=== PATIENT | female | born 1950 | race Caucasian/White ===

== ENCOUNTER 2017-07-30 23:19 | Emergency (ER) | payer MEDICARE, OTHER, SELFPAY ==
[2017-07-30 23:38] VITALS: BP 173/88; PULSE 59; RESP 16; TEMP 36.6; O2SAT 96; BMI 34.9
--- NOTE | 2017-07-30 23:46 | ED.FEMALEGU ---
HPI - Female Genitourinary General Chief complaint: Urogenital-Female Stated complaint: bleeding, unsure if rectal or vaginal Time Seen by Provider: 07/30/17 23:23 Source: patient and RN notes reviewed Mode of arrival: ambulatory Limitations: no limitations History of Present Illness HPI Narrative: Patient is a 67-year-old female with history of rectocele presenting with home of vaginal bleeding. Over the past week or so she has had progressively worse lower abdominal pain. This morning it was quite intense. This evening she also had bright red blood when she urinated. She does not remember her last bowel movement but thinks it was a couple of days ago. She denies any stool in her vagina. No nausea vomiting or fevers. She was recently treated with on Cipro for a UTI 2 or 3 weeks ago. Patient thinks that she was switched to a different antibiotic but can't remember what the thinks that she just had another course of Cipro. Onset (ago): day(s) Relieving factors: none Related Data Home Medications Medication Instructions Recorded Confirmed ACETAMINOPHEN 650 mg PO Q6HP #0 09/28/11 07/31/17 Calcium Carbonate/Vitamin D 1 cap PO Q DAY #0 09/28/11 07/31/17 (#CALCIUM) VITAMIN B COMPLEX 1 cap PO QDAY #0 09/28/11 07/31/17 albuterol sulfate [Ventolin HFA] 2 puff INH PRN #0 09/28/11 07/31/17 ciclesonide [Alvesco] 80 mcg IH BID #0 09/28/11 07/31/17 potassium chloride [Klor-Con 8] 10 meq PO QDAY #0 09/28/11 07/31/17 Fish Oil 1,500 mg PO QDAY #0 10/14/15 07/31/17 cholecalciferol (vitamin D3) 2,000 iu PO QDAY #0 10/14/15 07/31/17 [Vitamin D3] metoprolol tartrate 25 mg PO BID #0 01/11/17 07/31/17 rosuvastatin 40 mg PO BEDTIME 07/31/17 07/31/17 Previous Rx's Medication Instructions Recorded [CMP ESTRIOL CREAM] 0.2 % VAGINAL SEE INSTRUCTIONS #30 07/04/17 gm nitrofurantoin monohyd/m-cryst 1 cap PO Q12H 7 Days #14 cap 07/31/17 [Macrobid] Allergies Allergy/AdvReac Type Severity Reaction Status Date / Time celecoxib [CELECOXIB] Allergy Mild HIVES Verified 07/30/17 23:42 ciprofloxacin [From CIPRO] Allergy Mild causes c Verified 07/30/17 23:42 diff codeine [CODEINE] Allergy Mild HEART Verified 07/30/17 23:42 RACING cortisone [CORTISONE] Allergy Mild HIVES AND Verified 07/30/17 23:42 NAUSEA erythromycin base Allergy Mild FACE Verified 07/30/17 23:42 [ERYTHROMYCIN BASE] SWELLING latex [LATEX] Allergy Mild hives Verified 07/30/17 23:42 Penicillins [PENICILLINS] Allergy Mild THROAT Verified 07/30/17 23:42 SWELLING Sulfa (Sulfonamide Allergy Mild THROAT Verified 07/30/17 23:42 Antibiotics) SWELLING [SULFA (SULFONAMIDE ANTIBIOTICS)] scopolamine [SCOPOLAMINE] Allergy Unknown PT STATES Verified 07/30/17 23:42 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 ADHESIVE TAPES Allergy Unknown WELTS Uncoded 06/28/17 13:07 Review of Systems Review of Systems All systems reviewed & are unremarkable except as noted in HPI and below Constitutional Denies chills, Denies fever(s), Denies lethargy and Denies weakness Cardiovascular Denies chest pain, Denies irregular heart rhythm, Denies lightheadedness, Denies palpitations, Denies dyspnea, Denies dyspnea on exertion and Denies orthopnea Respiratory Denies cough, Denies dyspnea, Denies dyspnea on exertion and Denies wheezing Gastrointestinal Gastrointestinal: Reports as per HPI Genitourinary Reports as per HPI and Reports prolapse symptoms Musculoskeletal Denies back pain, Denies muscle weakness, Denies numbness and Denies tingling Integumentary/Breasts Denies pruritus, Denies erythema, Denies rash and Denies wounds Neurologic Denies numbness, Denies tingling and Denies weakness Endocrine Denies palpitations Allergic/Immunologic Denies wheezing PMFSH Past Medical History Source: nursing notes reviewed Medical history: Reports other (Rectocele) Surgical history: Reports appendectomy and hysterectomy Exam Const General: cooperative and well developed Nutritional Appearance: well nourished Orientation: alert, awake, oriented x3 and not confused Neck Neck: no meningeal signs Resp Effort & Inspection: normal respiratory effort, able to speak in complete sentences, no respiratory distress and no use of accessory muscles Auscultation: clear to auscultation bilaterally, no rales, no rhonchi and no wheezes Cardio Rate: regular rate Rhythm: regular rhythm Heart Sounds: no click, no gallops, no murmurs and no rubs Pulses: normal peripheral pulses GI Inspection: normal to inspection Palpation: soft and No guarding Rectal Exam: hemorrhoids External Female Exam: no external swelling, no lesions and other (Large external rectocele appears chronic will sign of bleeding no gross discharge, rectocele is soft nontender, mobile) Skin General: no rashes or lesions noted, No jaundice and No petechiae Neuro General: alert, oriented x3, gait normal and no focal motor deficits Cranial Nerves: CN's II-XI intact bilaterally Speech: speech normal Motor: strength 5/5 throughout Sensory Exam: no sensory deficits noted MDM - Female Genitourinary MDM Narrative Medical decision making narrative: Patient's blood work within normal limits. She does have leukocytes and blood in her urine. She is at risk for frequent UTIs with her rectocele. He is appears chronic. Will put her on Macrobid. says that she has tolerated that 1 before. She has multiple antibiotic allergies. She otherwise appears stable for the toxic. She is scheduled with Dr. Quiroz at [facility] for surgery Medical Records Attestation: I reviewed the patient's medical records. Lab Data Attestation: I reviewed the patient's lab results. Result diagrams: 07/30/17 23:55 07/30/17 23:55 Lab Results 07/30/17 07/30/17 07/30/17 Range/Units 23:35 23:55 23:55 WBC 7.6 (4.5-11.0) X10^3/uL RBC 5.03 (4.0-5.2) X10^6/uL Hgb 15.6 (12.0-16.0) g/dL Hct 45.6 (36-46) % MCV 90.7 (80-100) fL MCH 31.1 (26-34) PG MCHC 34.3 (30-36) % RDW 13.7 (11.6-14.8) % Plt Count 188 (150-400) X10^3/uL Neut % (Auto) 44.1 L (50-75) % Lymph % (Auto) 41.1 H (25-40) % Howard % (Auto) 10.8 (3-14) % Eos % (Auto) 3.4 (2-4) % Baso % (Auto) 0.6 (0-2) % Neut # (Auto) 3300 (4347-2818) /uL Sodium 142 (137-145) mmol/L Potassium 3.8 (3.4-5.1) mmol/L Chloride 104.0 (98-107) mmol/L Carbon Dioxide 26.0 (22-32) mmol/L BUN 14.0 (7-17) mg/dL Creatinine 0.70 (0.52-1.04) mg/dL Estimated GFR > 60.0 (>60) mL/min BUN/Creatinine Ratio 20.0 (6-22) Glucose 98 (80-110) mg/dL Calcium 10.5 H (8.4-10.2) mg/dL Total Bilirubin 0.6 (0.2-1.3) mg/dL AST 34 (14-36) IU/L ALT 36 (9-52) IU/L Alkaline Phosphatase 79 (38-126) U/L Total Protein 7.3 (6.3-8.2) g/dL Albumin 4.5 (3.5-5.0) g/dL Globulin 2.8 (1.7-4.1) g/dL Albumin/Globulin Ratio 1.6 (1.0-2.8) Lipase 114 (23-300) U/L Urine RBC 1-5/hpf (0-5/HPF) Urine WBC 1-5/hpf (0-5/HPF) Ur Squamous Epith Cells 1-5 /hpf Urine Bacteria Few (2-10) H (None) Ur Culture Indicated? Specimen cultured Micro UA Comment Not Reportable Imaging Data CT scan - abdomen: Radiologist's impression: bilingual student tutor report Diverticulosis. Small areas of fluid attenuation are noted near anterior abdominal wall periumbilical region possibly related to prior surgery. Findings consistent with prolapse of the uterus vagina and rectum. Small hiatal hernia. Course Orders Ordered: ED Orders 07/30/17 23:35 Urine Microscopic Stat 07/30/17 23:48 CT abdomen pelvis w con Stat 07/30/17 23:55 Complete Blood Count AUTO DIFF Stat Comprehensive Metabolic Panel Stat Lipase Stat Discontinued Medications Sodium Chloride (Normal Saline 0.9%) 1,000 mls @ 150 mls/hr IV CONT LUANA Last Infusion: 07/31/17 02:28 Dose: 150 mls/hr Admin: 07/31/17 00:00 Dose: 150 mls/hr Nitrofurantoin Macrocrystals (Macrobid 100 Mg Capsule) 100 mg PO NOW ONE Stop: 07/31/17 02:01 Last Admin: 07/31/17 02:10 Dose: 100 mg Ondansetron HCl (Zofran) 4 mg IV NOW ONE Stop: 07/30/17 23:47 Last Admin: 07/31/17 00:00 Dose: 4 mg Last Vital Signs Temp 97.7 F 07/31/17 02:16 Pulse 60 07/31/17 02:16 Resp 16 07/31/17 02:16 BP 150/62 H 07/31/17 02:16 Pulse Ox 98 07/31/17 02:16 Discharge Plan Departure Patient Disposition: Home, Self-Care Clinical Impression: Urinary tract infection Discharge Date/Time: 07/31/17 02:30 Interventions: ED Discharge Assessment Last Done: 07/31/17 02:27 Instructions: Cystocele/Rectocele, DI for Urinary Tract Infection (UTI) Activity Restrictions/Additional Instructions: *You have been diagnosed with bladder infection *What to do: CT scan does show pockets of fluid likely to be left over from his surgery and not acute infection, however may require is drainage for evaluation if you become more symptomatic *Take medications as directed *Follow up with your primary care provider in 2-3 days *Return to ER if you should have increasing pain, fever or any new, worsening or concerning symptoms Prescriptions: New nitrofurantoin monohyd/m-cryst [Macrobid] 100 mg capsule 1 cap PO Q12H 7 Days Qty: 14 RF: 0 No Action ciclesonide [Alvesco] 160 MCG/PUFF HFA aerosol inhaler 80 mcg IH BID Qty: 0 RF: 0 potassium chloride [Klor-Con 8] 8 MEQ tablet extended release 10 meq PO QDAY Qty: 0 RF: 0 VITAMIN B COMPLEX 1 cap PO QDAY Qty: 0 RF: 0 ACETAMINOPHEN 650 mg PO Q6HP Qty: 0 RF: 0 albuterol sulfate [Ventolin HFA] 90 MCG/PUFF HFA aerosol inhaler 2 puff INH PRN Qty: 0 RF: 0 Calcium Carbonate/Vitamin D (#CALCIUM) 1 cap PO Q DAY Qty: 0 RF: 0 cholecalciferol (vitamin D3) [Vitamin D3] 2,000 UNIT capsule 2,000 iu PO QDAY Qty: 0 RF: 0 Fish Oil 1,500 mg PO QDAY Qty: 0 RF: 0 metoprolol tartrate 25 MG tablet 25 mg PO BID Qty: 0 RF: 0 [CMP ESTRIOL CREAM] 0.2 % Vaginal SEE INSTRUCTIONS Qty: 30 RF: 3 rosuvastatin 40 mg tablet 40 mg PO BEDTIME RF: 0 Referrals: Shana Ramírez MD [Physician] - Schuyler Bello MD [Primary Care Provider] - Alisa Quiroz MD [Non-Staff] -
--- NOTE | 2017-07-30 23:48 | DI.CT.S_ITS ---
PROCEDURE: CT ABDOMEN PELVIS W CON INDICATIONS: vaginal bleeding with rectocele TECHNIQUE: After the administration of oral and intravenous contrast, 5 mm thick sections acquired from the diaphragms to the symphysis. 5 mm thick coronal and sagittal reformats were performed. For radiation dose reduction, the following was used: automated exposure control, adjustment of mA and/or kV according to patient size. COMPARISON: Pelvic ultrasound 02/11/2015; CT abdomen and pelvis 02/02/2015, 01/29/2015 FINDINGS: Preliminary report by shift lab technician radiology Image quality: Excellent. ABDOMEN: Lung bases: Lung bases show mild bibasilar atelectasis or scarring, right greater than left. Heart size is normal. Small hiatal hernia. Solid organs: Liver is normal in size and enhancement. Gallbladder appears clear. Biliary system is non-dilated. Pancreas enhances normally. Spleen is normal in size and enhancement. No adrenal nodules. Kidneys are normal in size and enhancement, without hydronephrosis. Peritoneum and bowel: Stomach, small bowel, and colon loops are normal in caliber and wall thickness. The appendix is nonvisualized. Mild colonic diverticulosis without diverticulitis. No free fluid or air. Nodes and vessels: No retroperitoneal or mesenteric adenopathy. Aorta and inferior vena cava are normal in caliber. Miscellaneous: Small fluid-filled periumbilical hernia. PELVIS: Genitourinary: Bladder wall thickness is normal. Rectal, uterine and vaginal prolapse is evident. Miscellaneous: No inguinal hernias or adenopathy. Bones: No suspicious bony lesions. Degenerative disc disease and grade 1 anterolisthesis L4-5 and L5-S1. Disc degeneration T10-11 also noted. No vertebral body compression fractures. IMPRESSION: 1. No acute findings. 2. Rectal, uterine and vaginal prolapse. 3. Periumbilical fluid-filled ventral hernia, possibly postsurgical. 4. Small hiatal hernia. 5. Diverticulosis without diverticulitis. Findings are concordant with the preliminary report. Dictated by: Lui Domingo M.D. on 07/31/2017 at 8:02 Approved by: Lui Domingo M.D. on 07/31/2017 at 8:11
[2017-07-31] MEDS: ONDANSETRON 4 MG/2 ML INJ IV
[2017-07-31] MEDS: SODIUM CHLORIDE 0.9% 1,000 ML 150 ML IV
[2017-07-31 00:04] LABS: Add Manual Diff / Slide Review NO; Basophils Percent Auto 0.6 % (0-2); Eosinophils Percent Auto 3.4 % (2-4); Hematocrit 45.6 % (36-46); Hemoglobin 15.6 g/dL (12.0-16.0); Lymphocytes Percent Auto 41.1 % (25-40); Mean Corpuscular HGB Conc 34.3 % (30-36); Mean Corpuscular Hemoglobin 31.1 PG (26-34); Mean Corpuscular Volume 90.7 fL (80-100); Monocytes Percent Auto 10.8 % (3-14); Neutrophils Absolute Auto 3300 /uL (3000-5900); Neutrophils Percent Auto 44.1 % (50-75); Platelet Count 188 X10^3/uL (150-400); Red Blood Cell Count 5.03 X10^6/uL (4.0-5.2); Red Cell Distribution Width 13.7 % (11.6-14.8); White Blood Cell Count 7.6 X10^3/uL (4.5-11.0)
[2017-07-31 00:12] LABS: RBC Urine 1-5/HPF (0-5/HPF); Squamous Epithelial Cell Urine 1-5 /HPF; WBC Urine 1-5/HPF (0-5/HPF)
[2017-07-31 00:13] LABS: Bacteria Urine Few (2-10); Culture Indicated Urine Specimen Cultured
[2017-07-31 00:13] LABS: Alanine Aminotransferase 36 IU/L (9-52); Albumin 4.5 g/dL (3.5-5.0); Albumin Globulin Ratio 1.6 (1.0-2.8); Alkaline Phosphatase 79 U/L (38-126); Aspartate Aminotransferase 34 IU/L (14-36); Bilirubin Total 0.6 mg/dL (0.2-1.3); Calcium 10.5 mg/dL (8.4-10.2); Estimated Glomerular Filt Rate > 60.0 mL/min (>60); Globulin 2.8 g/dL (1.7-4.1); Glucose 98 mg/dL (80-110); HEMOLYSIS < 15 (0-50); Lipase 114 U/L (23-300); Potassium 3.8 mmol/L (3.4-5.1); Sodium 142 mmol/L (137-145); Total Protein 7.3 g/dL (6.3-8.2)
[2017-07-31 00:15] VITALS: BP 138/76; PULSE 19; O2SAT 95
[2017-07-31 00:30] VITALS: BP 128/64; PULSE 60; O2SAT 96
[2017-07-31 01:29] VITALS: BP 169/87; PULSE 67; O2SAT 97
[2017-07-31 01:30] VITALS: BP 144/75; PULSE 64; O2SAT 98
[2017-07-31] MEDS: NITROFURANTOIN ER 100 MG CAPSULE PO (02:10)
[2017-07-31 02:16] VITALS: BP 150/62; PULSE 60; PULSE 66; RESP 16; TEMP 36.5; O2SAT 98; O2SAT 99
== END 2017-07-31 02:30 | disposition home or self-care (01) ==
PROVIDERS: Emergency Provider Emergency Medicine; Family Provider Family Medicine; PCP Family Medicine
DX: N39.0 Urinary tract infection, site not specified (principal)
CPT/HCPCS: 36591; 74177; 80053; 81003; 81015; 83690; 85025; 87086; 94760; 96361; 96374; 99284; J2405; Q9967

== ENCOUNTER 2017-10-11 18:47 | Emergency (ER) | payer MEDICARE, OTHER, SELFPAY ==
[2017-10-11 18:49] VITALS: BP 151/69; PULSE 67; RESP 20; TEMP 36.1; O2SAT 98; BMI 34.4
--- NOTE | 2017-10-11 21:53 | PC.NURSE ---
Pt reports she had surgery recently and had an IV placed in her L wrist. About 1.5 inches above insertion site at vein bifurcation pt reports feeling a ball under her skin which appears to look and feel like hematoma. Pt worried that its a blood clot. given warm compress for area. pt denies pain to site and L hand warm to touch with +CMS
--- NOTE | 2017-10-11 22:00 | ED.SKABFB ---
HPI - Skin/Abscess/Foreign Bdy <FREDERICK Menjivar - Last Filed: 10/11/17 22:14> General Chief complaint: Skin/Abscess/Foreign Body Stated complaint: LEFT WRIST VAIN FEELS ODD History of Present Illness HPI narrative: 67-year-old female here for complaint of having a small bump to her left distal forearm. She states she had a IV in that arm after she had surgery 9 days ago. She states that the filling along that area today when she felt a bump she denies any pain into the area. No erythema no swelling. She denies any other concerns or complaints. No shortness of breath. complaint: lesion Related Data Home Medications Medication Instructions Recorded Confirmed ACETAMINOPHEN 650 mg PO Q6HP #0 09/28/11 08/21/17 Calcium Carbonate/Vitamin D 1 cap PO Q DAY #0 09/28/11 08/21/17 (#CALCIUM) VITAMIN B COMPLEX 1 cap PO QDAY #0 09/28/11 08/21/17 albuterol sulfate [Ventolin HFA] 2 puff INH PRN #0 09/28/11 08/21/17 ciclesonide [Alvesco] 80 mcg IH BID #0 09/28/11 08/21/17 potassium chloride [Klor-Con 8] 10 meq PO QDAY #0 09/28/11 08/21/17 Fish Oil 1,500 mg PO QDAY #0 10/14/15 08/21/17 metoprolol tartrate 25 mg PO BID #0 01/11/17 08/21/17 rosuvastatin 40 mg PO BEDTIME 07/31/17 08/21/17 Previous Rx's Medication Instructions Recorded [CMP ESTRIOL CREAM] 0.2 % VAGINAL SEE INSTRUCTIONS #30 07/04/17 gm Allergies Allergy/AdvReac Type Severity Reaction Status Date / Time celecoxib [CELECOXIB] Allergy Mild HIVES Verified 07/30/17 23:42 ciprofloxacin [From CIPRO] Allergy Mild causes c Verified 07/30/17 23:42 diff codeine [CODEINE] Allergy Mild HEART Verified 07/30/17 23:42 RACING cortisone [CORTISONE] Allergy Mild HIVES AND Verified 07/30/17 23:42 NAUSEA erythromycin base Allergy Mild FACE Verified 07/30/17 23:42 [ERYTHROMYCIN BASE] SWELLING latex [LATEX] Allergy Mild hives Verified 07/30/17 23:42 Penicillins [PENICILLINS] Allergy Mild THROAT Verified 07/30/17 23:42 SWELLING Sulfa (Sulfonamide Allergy Mild THROAT Verified 07/30/17 23:42 Antibiotics) SWELLING [SULFA (SULFONAMIDE ANTIBIOTICS)] scopolamine [SCOPOLAMINE] Allergy Unknown PT STATES Verified 07/30/17 23:42 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 ADHESIVE TAPES Allergy Unknown WELTS Uncoded 06/28/17 13:07 Review of Systems <FREDERICK Menjivar - Last Filed: 10/11/17 22:14> Constitutional Denies chills, Denies fever(s), Denies lethargy and Denies weakness Eyes Denies change in vision, Denies eye discharge, Denies irritation and Denies loss of vision ENT Ears, Nose, Mouth, and Throat: Denies change in voice, Denies neck pain and Denies sore throat Cardiovascular Denies chest pain, Denies irregular heart rhythm, Denies lightheadedness, Denies palpitations, Denies dyspnea, Denies dyspnea on exertion and Denies orthopnea Respiratory Denies cough, Denies dyspnea, Denies dyspnea on exertion and Denies wheezing Gastrointestinal Gastrointestinal: Denies abdominal pain, Denies change in bowel habits, Denies diarrhea, Denies nausea and Denies vomiting Genitourinary Denies hematuria, Denies flank pain, Denies urinary incontinence and Denies urinary urgency Musculoskeletal Denies neck pain Comments: Small nodule to left for Integumentary/Breasts Denies pruritus, Denies erythema, Denies rash and Denies wounds Neurologic Denies confusion, Denies loss of vision and Denies weakness Psychiatric Denies anxiety, Denies confusion, Denies depression, Denies homicidal ideation and Denies suicidal ideation Endocrine Denies palpitations Allergic/Immunologic Denies wheezing Exam <FREDERICK Menjivar - Last Filed: 10/11/17 22:14> Initial Vital Signs Initial Vital Signs: Vital Signs Temperature 97.0 F L 10/11/17 18:49 Pulse Rate 67 10/11/17 18:49 Respiratory Rate 20 10/11/17 18:49 Blood Pressure 151/69 H 10/11/17 18:49 Pulse Oximetry 98 10/11/17 18:49 Const General: cooperative and well developed Nutritional Appearance: well nourished Orientation: alert, awake, oriented x3 and not confused HENMT Mouth: oral mucosae normal and moist mucous membranes Eyes Conjunctivae: conjunctivae normal Sclera: sclerae normal Pupils: PERRL EOM: EOM intact bilaterally Resp Effort & Inspection: normal respiratory effort, able to speak in complete sentences, no respiratory distress and no use of accessory muscles Auscultation: clear to auscultation bilaterally, no rales, no rhonchi and no wheezes Cardio Rate: regular rate Rhythm: regular rhythm Heart Sounds: no click, no gallops, no murmurs and no rubs Pulses: normal peripheral pulses Skin General: no rashes or lesions noted, No jaundice and No petechiae Neuro General: alert, oriented x3, gait normal and no focal motor deficits Speech: speech normal Extrem Other: Small 5 mm nodule to her left distal dorsal forearm. No surrounding erythema. No swelling. No increased heat. Distal sensation is intact. Full range of motion distally. Distal pulses are intact. <Irene Malagon DO - Last Filed: 10/12/17 05:40> Initial Vital Signs Initial Vital Signs: Vital Signs Temperature 97.0 F L 10/11/17 18:49 Pulse Rate 67 10/11/17 18:49 Respiratory Rate 20 10/11/17 18:49 Blood Pressure 151/69 H 10/11/17 18:49 Pulse Oximetry 98 10/11/17 18:49 Course <FREDERICK Menjivar - Last Filed: 10/11/17 22:14> Vital Signs - 8 hr 10/11/17 22:33 Pulse Rate 70 Respiratory Rate 16 Blood Pressure 148/70 H Pulse Oximetry 100 <DO Adam Hager Last Filed: 10/12/17 05:40> Vital Signs - 8 hr 10/11/17 22:33 Pulse Rate 70 Respiratory Rate 16 Blood Pressure 148/70 H Pulse Oximetry 100 MDM - Skin/Abscess/Foreign Bdy <FREDERICK Menjivar - Last Filed: 10/11/17 22:14> MDM Narrative Medical decision making narrative: Small nodule to the distal aspect of her right forearm with no erythema and no swelling and no increased temperature. Distal CMS is intact. Signs and symptoms presents as scar tissue secondary to IV over week and half ago. She does not have any discomfort to the area. Do not see any complications. Follow up with primary care provider next week for re-evaluation. For any worsening symptoms return to the emergency room. Discharge Plan Departure Patient Disposition: Home, Self-Care Clinical Impression: No problem, feared complaint unfounded Discharge Date/Time: 10/11/17 22:20 Interventions: ED Discharge Assessment Last Done: 10/11/17 22:33 Instructions: Scars -- Overview Activity Restrictions/Additional Instructions: Signs and symptoms presents as some scar tissue to the venous wall status post having IV to that area last week and should not cause any complication. Follow up with her primary care provider. Return emergency room for any worsening symptoms. Prescriptions: No Action ciclesonide [Alvesco] 160 MCG/PUFF HFA aerosol inhaler 80 mcg IH BID Qty: 0 RF: 0 potassium chloride [Klor-Con 8] 8 MEQ tablet extended release 10 meq PO QDAY Qty: 0 RF: 0 VITAMIN B COMPLEX 1 cap PO QDAY Qty: 0 RF: 0 ACETAMINOPHEN 650 mg PO Q6HP Qty: 0 RF: 0 albuterol sulfate [Ventolin HFA] 90 MCG/PUFF HFA aerosol inhaler 2 puff INH PRN Qty: 0 RF: 0 Calcium Carbonate/Vitamin D (#CALCIUM) 1 cap PO Q DAY Qty: 0 RF: 0 Fish Oil 1,500 mg PO QDAY Qty: 0 RF: 0 metoprolol tartrate 25 MG tablet 25 mg PO BID Qty: 0 RF: 0 [CMP ESTRIOL CREAM] 0.2 % Vaginal SEE INSTRUCTIONS Qty: 30 RF: 3 rosuvastatin 40 mg tablet 40 mg PO BEDTIME RF: 0 Referrals: Schuyler Bello MD [Primary Care Provider] - <Irene Malagon DO - Last Filed: 10/12/17 05:40> Cosign ED Attending Travis Attestation: I was immediately available in the department for consultation. Documentation has been reviewed. I agree with assessment and plan.
[2017-10-11 22:33] VITALS: BP 148/70; PULSE 70; RESP 16; O2SAT 100
== END 2017-10-11 22:20 | disposition home or self-care (01) ==
PROVIDERS: Emergency Provider Nurse Practitioner Family; Family Provider Family Medicine; PCP Family Medicine
DX: Z71.1 Person with feared health complaint in whom no diagnosis is made (principal)
CPT/HCPCS: 99282

== ENCOUNTER 2017-11-09 16:41 | Observation (INO) | payer MEDICARE, OTHER, SELFPAY ==
[2017-11-09] VITALS (7 sets, daily range): BP systolic 118–159; BP diastolic 60–86; PULSE 57–76; RESP 14–20; TEMP 36.7; O2SAT 96–100; BMI 35.1
--- NOTE | 2017-11-09 16:49 | DI.RAD.S_ITS ---
PROCEDURE: XR CHEST 1V INDICATIONS: chest pain TECHNIQUE: One view of the chest was acquired. COMPARISON: None. FINDINGS: Surgical changes and devices: Postsurgical changes are demonstrated in the mediastinum compatible with prior CABG. Lungs and pleura: No pleural effusions or pneumothorax. Lungs are clear. Mediastinum: Mediastinal contours appear normal. Heart size is normal. Bones and chest wall: No suspicious bony lesions. Overlying soft tissues appear unremarkable. IMPRESSION: 1. No acute cardiopulmonary disease. Dictated by: Edson Miranda M.D. on 11/09/2017 at 17:58 Approved by: Edson Miranda M.D. on 11/09/2017 at 17:59
--- NOTE | 2017-11-09 17:04 | ED_ITS ---
HPI - Chest Pain General Chief Complaint: Chest Pain Stated Complaint: CHEST PAIN Time Seen by Provider: 11/09/17 16:48 Source: patient Mode of arrival: ambulatory Limitations: no limitations History of Present Illness HPI narrative: Patient is a 67-year-old female with history of coronary artery disease status post coronary artery bypass graft just over 1 year ago here for evaluation of left-sided chest pain. She states that it started earlier this afternoon after she was outside sweeping. States that it lasted approximately 2240 min. No shortness of breath with that is now resolved. She did take 3 regular strength aspirin prior to coming to the emergency department. She states that it was a pressure behind her breast bone. No radiation. Nothing made it worse. Nothing made it better. She states that it did feel somewhat different than the pressure that she had when she had her heart attack. She is taking her medications. Related Data Home Medications Medication Instructions Recorded Confirmed ACETAMINOPHEN 650 mg PO Q6HP #0 09/28/11 08/21/17 Calcium Carbonate/Vitamin D 1 cap PO Q DAY #0 09/28/11 08/21/17 (#CALCIUM) VITAMIN B COMPLEX 1 cap PO QDAY #0 09/28/11 08/21/17 albuterol sulfate [Ventolin HFA] 2 puff INH PRN #0 09/28/11 08/21/17 potassium chloride [Klor-Con 8] 20 meq PO QDAY #0 09/28/11 11/09/17 Fish Oil 1,500 mg PO QDAY #0 10/14/15 08/21/17 metoprolol tartrate 25 mg PO BID #0 01/11/17 11/09/17 rosuvastatin 40 mg PO BEDTIME 07/31/17 11/09/17 aspirin [Aspir-81] 81 mg PO DAILY 11/09/17 11/09/17 beclomethasone dipropionate [Qvar 2 puff INHALATION Q12H 11/09/17 11/09/17 RediHaler] Previous Rx's Medication Instructions Recorded [CMP ESTRIOL CREAM] 0.2 % VAGINAL SEE INSTRUCTIONS #30 07/04/17 gm Allergies Allergy/AdvReac Type Severity Reaction Status Date / Time celecoxib [CELECOXIB] Allergy Mild HIVES Verified 11/09/17 16:55 ciprofloxacin [From CIPRO] Allergy Mild causes c Verified 11/09/17 16:55 diff codeine [CODEINE] Allergy Mild HEART Verified 11/09/17 16:55 RACING cortisone [CORTISONE] Allergy Mild HIVES AND Verified 11/09/17 16:55 NAUSEA erythromycin base Allergy Mild FACE Verified 11/09/17 16:55 [ERYTHROMYCIN BASE] SWELLING latex [LATEX] Allergy Mild hives Verified 11/09/17 16:55 Penicillins [PENICILLINS] Allergy Mild THROAT Verified 11/09/17 16:55 SWELLING Sulfa (Sulfonamide Allergy Mild THROAT Verified 11/09/17 16:55 Antibiotics) SWELLING [SULFA (SULFONAMIDE ANTIBIOTICS)] scopolamine [SCOPOLAMINE] Allergy Unknown PT STATES Verified 11/09/17 16:55 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 ADHESIVE TAPES Allergy Unknown WELTS Uncoded 11/09/17 16:55 Review of Systems Constitutional Denies fever(s) and Denies headache(s) ENT Ears, Nose, Mouth, and Throat: Denies vertigo, Denies dizziness and Denies headache(s) Cardiovascular Reports chest pain, Denies syncope, Denies rapid heart rate, Denies edema, Denies irregular heart rhythm, Denies palpitations and Denies dyspnea Respiratory Denies cough and Denies dyspnea Gastrointestinal Gastrointestinal: Denies abdominal pain, Denies nausea and Denies vomiting Genitourinary Denies dysuria Musculoskeletal Denies myalgias and Denies arthralgias Integumentary/Breasts Denies lesions and Denies rash Neurologic Denies confusion, Denies vertigo, Denies dizziness, Denies syncope and Denies headache(s) Psychiatric Denies confusion Endocrine Denies palpitations Hematologic/Lymphatic Denies easy bleeding and Denies easy bruising [facility] Medical History CAD (coronary artery disease) (Acute) Surgical History History of carpal tunnel repair History of knee replacement Status post appendectomy Status post breast lumpectomy Status post hysterectomy Status post laparoscopy (04/20/15) Status post tonsillectomy and adenoidectomy Social History Smoking Status: Never smoker Exam Initial Vital Signs Initial Vital Signs: Vital Signs Temperature 98.1 F 11/09/17 16:47 Pulse Rate 57 L 11/09/17 16:47 Respiratory Rate 18 11/09/17 16:47 Blood Pressure 159/86 H 11/09/17 16:47 Pulse Oximetry 100 11/09/17 16:47 Const General: cooperative, healthy appearing, comfortable, well developed, well groomed and No acute distress Orientation: alert, awake and oriented x3 HENMT Head: normal to inspection and normocephalic Resp Effort & Inspection: normal respiratory effort Auscultation: clear to auscultation bilaterally Cardio Rate: regular rate Rhythm: regular rhythm Pulses: radial pulses present GI Inspection: normal to inspection and non-distended Palpation: soft, No firm and No tender Skin Lesions: no lesions Rashes: no rashes Neuro General: alert, awake and oriented x3 Cognition: normal cognition Speech: speech normal Motor: muscle tone normal throughout Sensory Exam: no sensory deficits noted Extrem General: normal to inspection and capillary refill normal Psych Appearance: grossly normal and well kempt Course Orders Ordered: ED Orders 11/09/17 16:49 XR chest 1V Stat 11/09/17 16:50 EKG-12 Lead Stat 11/09/17 17:00 B Type Natriuretic Peptide Stat Complete Blood Count AUTO DIFF Stat Comprehensive Metabolic Panel Stat Partial Thromboplastin Time Stat Prothrombin Time INR Stat Troponin I Stat Discontinued Medications Aspirin (Aspirin Chew) 324 mg PO NOW ONE Stop: 11/09/17 16:50 Last Admin: 11/09/17 17:50 Dose: Vital Signs - 8 hr 11/09/17 16:47 11/09/17 17:25 11/09/17 18:03 Temperature 98.1 F Pulse Rate 57 L 57 L 58 L Respiratory Rate 18 20 14 Blood Pressure 159/86 H Blood Pressure [Right Arm] 141/84 H 124/65 H Pulse Oximetry 100 100 11/09/17 18:34 Temperature Pulse Rate 60 Respiratory Rate 20 Blood Pressure Blood Pressure [Right Arm] 118/60 Pulse Oximetry 98 MDM - Chest Pain Lab Data Attestation: I reviewed the patient's lab results. Result diagrams: 11/09/17 17:00 11/09/17 17:00 Lab Results 11/09/17 11/09/17 11/09/17 Range/Units 17:00 17:00 17:00 WBC 8.4 (4.5-11.0) X10^3/uL RBC 4.45 (4.0-5.2) X10^6/uL Hgb 14.1 (12.0-16.0) g/dL Hct 41.9 (36-46) % MCV 94.1 (80-100) fL MCH 31.7 (26-34) PG MCHC 33.7 (30-36) % RDW 13.8 (11.6-14.8) % Plt Count 190 (150-400) X10^3/uL Neut % (Auto) 56.0 (50-75) % Lymph % (Auto) 32.1 (25-40) % Story % (Auto) 9.1 (3-14) % Eos % (Auto) 2.4 (2-4) % Baso % (Auto) 0.4 (0-2) % Neut # (Auto) 4700 (6162-5484) /uL PT 12.3 (10.1-12.7) SECONDS INR 1.1 (0.9-1.3) APTT 32 (26.4-36.2) SECONDS Sodium 143 (137-145) mmol/L Potassium 4.0 (3.4-5.1) mmol/L Chloride 108 H (98-107) mmol/L Carbon Dioxide 25 (22-32) mmol/L BUN 19 H (7-17) mg/dL Creatinine 0.60 (0.52-1.04) mg/dL Estimated GFR > 60.0 (>60) mL/min BUN/Creatinine Ratio 31.7 H (6-22) Glucose 93 (80-110) mg/dL Calcium 9.4 (8.4-10.2) mg/dL Total Bilirubin 0.6 (0.2-1.3) mg/dL AST 34 (14-36) IU/L ALT 24 (9-52) IU/L Alkaline Phosphatase 67 (38-126) U/L Troponin I < 0.012 (0.01-0.034) ng/mL B-Natriuretic Peptide 114.0 H (<100) Total Protein 7.2 (6.3-8.2) g/dL Albumin 4.4 (3.5-5.0) g/dL Globulin 2.8 (1.7-4.1) g/dL Albumin/Globulin Ratio 1.6 (1.0-2.8) Imaging Data Chest x-ray: Radiologist's impression: PROCEDURE: XR CHEST 1V INDICATIONS: chest pain TECHNIQUE: One view of the chest was acquired. COMPARISON: None. FINDINGS: Surgical changes and devices: Postsurgical changes are demonstrated in the mediastinum compatible with prior CABG. Lungs and pleura: No pleural effusions or pneumothorax. Lungs are clear. Mediastinum: Mediastinal contours appear normal. Heart size is normal. Bones and chest wall: No suspicious bony lesions. Overlying soft tissues appear unremarkable. IMPRESSION: 1. No acute cardiopulmonary disease. Dictated by: Edson Miranda M.D. on 11/09/2017 at 17:58 Approved by: Edson Miranda M.D. on 11/09/2017 at 17:59 ECG Data Attestation: I personally reviewed and interpreted this ECG as follows: Prior ECG tracings: not available for review Interpretation: Sinus bradycardia Ventricular rate of 57 Left axis deviation Normal QRS Normal QTC Nonspecific ST T wave changes MDM Narrative Medical decision making narrative: Patient took aspirin prior to arrival here in the emergency department. Has been asymptomatic since being here in the ER. Has nonspecific ST changes on her EKG. Does have a significant coronary artery history to include a five-vessel coronary artery bypass graft and also prior heart attack. Initial troponin was negative. Discussed the case with our hospitalist for admission for troponin trending. Discussed the admission plan with the patient and her was at bedside. They both expressed understanding and agreement with plan. Discharge Plan Departure Patient Disposition: Admitted as Observation Clinical Impression: Coronary artery disease, Chest pain
[2017-11-09 17:26] LABS: INR 1.1 (0.9-1.3); Prothrombin Time 12.3 SECONDS (10.1-12.7)
[2017-11-09 17:27] LABS: Add Manual Diff / Slide Review NO; Basophils Percent Auto 0.4 % (0-2); Eosinophils Percent Auto 2.4 % (2-4); Hematocrit 41.9 % (36-46); Hemoglobin 14.1 g/dL (12.0-16.0); Lymphocytes Percent Auto 32.1 % (25-40); Mean Corpuscular HGB Conc 33.7 % (30-36); Mean Corpuscular Hemoglobin 31.7 PG (26-34); Mean Corpuscular Volume 94.1 fL (80-100); Monocytes Percent Auto 9.1 % (3-14); Neutrophils Absolute Auto 4700 /uL (3000-5900); Platelet Count 190 X10^3/uL (150-400); Red Blood Cell Count 4.45 X10^6/uL (4.0-5.2); Red Cell Distribution Width 13.8 % (11.6-14.8); White Blood Cell Count 8.4 X10^3/uL (4.5-11.0)
[2017-11-09 17:28] LABS: PTT Partial Thromboplastin Tim 32 SECONDS (26.4-36.2)
[2017-11-09 17:30] LABS: Alanine Aminotransferase 24 IU/L (9-52); Albumin 4.4 g/dL (3.5-5.0); Albumin Globulin Ratio 1.6 (1.0-2.8); Alkaline Phosphatase 67 U/L (38-126); Aspartate Aminotransferase 34 IU/L (14-36); BUN Creatinine Ratio 31.7 (6-22); Bilirubin Total 0.6 mg/dL (0.2-1.3); Blood Urea Nitrogen 19 mg/dL (7-17); Calcium 9.4 mg/dL (8.4-10.2); Carbon Dioxide 25 mmol/L (22-32); Chloride 108 mmol/L (98-107); Estimated Glomerular Filt Rate > 60.0 mL/min (>60); Globulin 2.8 g/dL (1.7-4.1); Glucose 93 mg/dL (80-110); HEMOLYSIS 58 (0-50); Sodium 143 mmol/L (137-145); Total Protein 7.2 g/dL (6.3-8.2)
[2017-11-09 17:47] LABS: Troponin I < 0.012 ng/mL (0.01-0.034)
--- NOTE | 2017-11-09 19:15 | DI.NM.S_ITS ---
PROCEDURE: NM HEATHER PERF SPECT SINGLE STUDY Rest and exercise myocardial perfusion SPECT with gated imaging and ejection fraction RADIOPHARMACEUTICAL: 19.9 mCi Tc-99m sestamibi IV at peak exercise. A one day-protocol was performed. INDICATIONS: CHEST PAIN IN KNOWN CAD S/P CABG TECHNIQUE: Radiopharmaceutical was injected at peak stress test, and also at rest. SPECT images were obtained. SPECT myocardial perfusion images were displayed in short axis, horizontal long axis, and vertical long axis views. Gated images were reviewed using [employer] software. COMPARISON: None. CARDIAC STRESS: A standard [place] treadmill exercise tolerance test was performed by the patient under the supervision of an attending staff. The patient exercised for 6 minutes and 25 seconds, reaching 7.0 METs; functional aerobic impairment (CHERI) is -1%. Hemodynamic data: There is normal blood pressure and heart rate response to exercise stress. Patient achieved 101% of maximum predicted heart rate at peak exercise. Symptoms: Patient denied chest pain during exercise. EKG: Resting ECG shows sinus rhythm with non-specific T wave changes. No diagnostic EKG changes of ischemia with treadmill exercise; no ectopy. FINDINGS: Raw data: There is good myocardial labeling by radiotracer. No significant motion artifacts. Left ventricle function: Gated images demonstrate normal left ventricle wall thickening. No segmental wall motion abnormality. No transient ischemic dilation. The left ventricle resting end-diastolic volume is 76 mL. Left ventricle stress ejection fraction is 88%; normal values are above 45%. Myocardial perfusion: There is a mild defect in the mid to distal anterior wall on stress supine images that essentially resolves with prone imaging, suggesting breast attenuation artifact. No definite ischemia or infarction noted. IMPRESSION: Probably normal treadmill nuclear stress test. Resting images not obtained. 1) Probably normal perfusion images. There is a mild defect in the mid to distal anterior wall on stress supine images that essentially resolves with prone imaging, suggesting breast attenuation artifact. No definite ischemia or infarction noted. 2) Normal left ventricular size, wall motion, and systolic function (post stress EF 88%). 3) No ECG evidence of ischemia. 4) No angina during the stress test. 5) Average exercise tolerance (7.0 METs, CHERI -1%). Target heart rate achieved. 6) No prior nuclear stress test available for comparison. Dictated by: Janine Alegria MD on 11/10/2017 at 13:33 Approved by: Janine Alegria MD on 11/10/2017 at 13:39
--- NOTE | 2017-11-09 19:21 | P.HP_ITS ---
History of Present Illness Date Patient Seen: 11/09/17 Time Patient Seen: 19:10 Chief complaint: CHEST PAIN Narrative: This very pleasant 67-year-old lady with a history of coronary artery disease bypass graft about 18 months ago came to the ER today with a history of chest pressure lasting about 30 min earlier in the evening She had been somewhat stressed having such 5 grandchildren over to stay with her in the age 8 to14 she has also been doing a lot of work with the sleeping the deck and the porch and laundry In the interval is that she started developing pressure in the central part of the chest with no radiation to the jaw or to the arm and no association with the breathlessness or palpitations She took 3 aspirins and chewed them and the chest pain went away but since be of her underlying coronary history she came to the emergency room for further checkup The patient is chest pain-free at this time has no difficulty breathing cough or wheezing She had recently had pelvic surgery a major surgery at [facility] in September of this year she was evaluated prior to that by her pecan grower Dr. Terrazas from the patient and her says memory did think the last time she had any cardiac stress test was in the fall and she 1st became impatient with Dr. Terrazas She has had an MRI with 5 vessel bypass graft in the beginning of April of 2016 She has not had any chest pain of significance since that time until today though she has had pain in the incision area of the chest on and off Patient History Medical History CAD (coronary artery disease) (Acute) Surgical History History of carpal tunnel repair History of knee replacement Status post appendectomy Status post breast lumpectomy Status post hysterectomy Status post laparoscopy (04/20/15) Status post tonsillectomy and adenoidectomy Family & Social History Family History: Reviewed 11/09/17 by Maria C Lopez MD Safety & Behavioral: Feels Safe in Current Yes Environment Been Physically Hurt or No Threatened By a Person Tobacco & Substance use: Smoking Status Never smoker alcohol intake frequency 0-2 drinks per day Substance Use Type does not use Meds Home Medications Medication Instructions Recorded Confirmed Type ACETAMINOPHEN 650 mg PO Q6HP #0 09/28/11 08/21/17 History Calcium Carbonate/Vitamin D 1 cap PO Q DAY #0 09/28/11 08/21/17 History (#CALCIUM) VITAMIN B COMPLEX 1 cap PO QDAY #0 09/28/11 08/21/17 History albuterol sulfate [Ventolin HFA] 2 puff INH PRN #0 09/28/11 08/21/17 History potassium chloride [Klor-Con 8] 20 meq PO QDAY #0 09/28/11 11/09/17 History Fish Oil 1,500 mg PO QDAY #0 10/14/15 08/21/17 History metoprolol tartrate 25 mg PO BID #0 01/11/17 11/09/17 History [CMP ESTRIOL CREAM] 0.2 % VAGINAL SEE INSTRUCTIONS #30 07/04/17 08/21/17 Rx gm rosuvastatin 40 mg PO BEDTIME 07/31/17 11/09/17 History aspirin [Aspir-81] 81 mg PO DAILY 11/09/17 11/09/17 History beclomethasone dipropionate [Qvar 2 puff INHALATION Q12H 11/09/17 11/09/17 History RediHaler] Allergies Allergy/AdvReac Type Severity Reaction Status Date / Time celecoxib [CELECOXIB] Allergy Mild HIVES Verified 11/09/17 16:55 ciprofloxacin [From CIPRO] Allergy Mild causes c Verified 11/09/17 16:55 diff codeine [CODEINE] Allergy Mild HEART Verified 11/09/17 16:55 RACING cortisone [CORTISONE] Allergy Mild HIVES AND Verified 11/09/17 16:55 NAUSEA erythromycin base Allergy Mild FACE Verified 11/09/17 16:55 [ERYTHROMYCIN BASE] SWELLING latex [LATEX] Allergy Mild hives Verified 11/09/17 16:55 Penicillins [PENICILLINS] Allergy Mild THROAT Verified 11/09/17 16:55 SWELLING Sulfa (Sulfonamide Allergy Mild THROAT Verified 11/09/17 16:55 Antibiotics) SWELLING [SULFA (SULFONAMIDE ANTIBIOTICS)] scopolamine [SCOPOLAMINE] Allergy Unknown PT STATES Verified 11/09/17 16:55 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 ADHESIVE TAPES Allergy Unknown WELTS Uncoded 11/09/17 16:55 Review of Systems Review of Systems A 12 point review of system reveals no other symptoms other than the 1 present in the history of present illness as above Exam Vital Signs (past 8 hours): - 11/09/17 16:47 11/09/17 17:25 11/09/17 18:03 Temperature 98.1 F Pulse Rate 57 L 57 L 58 L Respiratory Rate 18 20 14 Blood Pressure 159/86 H Blood Pressure [Right Arm] 141/84 H 124/65 H Pulse Oximetry 100 100 11/09/17 18:34 Temperature Pulse Rate 60 Respiratory Rate 20 Blood Pressure Blood Pressure [Right Arm] 118/60 Pulse Oximetry 98 Oxygen Delivery Method Room Air Const General: cooperative, healthy appearing, comfortable and well developed Orientation: alert, awake and oriented x3 HENMT Head: normal to inspection Ears: hearing grossly normal bilaterally Nose: external nose normal Face and sinus: normal facial exam Eyes General: appearance normal, both eyes and all related structures Eyelids: eyelids normal Conjunctivae: conjunctivae normal Sclera: sclerae normal Pupils: PERRL EOM: EOM intact bilaterally Neck Neck: normal visual inspection and No JVD Thyroid: thyroid normal Resp Effort & Inspection: normal respiratory effort, able to speak in complete sentences, no respiratory distress and no use of accessory muscles Auscultation: clear to auscultation bilaterally Cardio Rate: regular rate Rhythm: regular rhythm Heart Sounds: S1 normal and S2 normal GI Inspection: normal to inspection Palpation: soft and no hepatosplenomegaly Skin General: no rashes or lesions noted Neuro General: alert, awake and oriented x3 Cranial Nerves: CN's II-XI intact bilaterally Cognition: normal cognition Speech: speech normal Motor: muscle tone normal throughout Extrem Other: no edema Psych Appearance: grossly normal Mood: congruent mood Affect: normal affect Attitude: cooperative Thought Process: normal Judgment: judgment good Objective Labs Result Diagrams: 11/09/17 17:00 11/09/17 17:00 Labs: Laboratory Results - last 24 hr 11/09/17 11/09/17 11/09/17 17:00 17:00 17:00 WBC 8.4 RBC 4.45 Hgb 14.1 Hct 41.9 MCV 94.1 MCH 31.7 MCHC 33.7 RDW 13.8 Plt Count 190 Neut % (Auto) 56.0 Lymph % (Auto) 32.1 [place] % (Auto) 9.1 Eos % (Auto) 2.4 Baso % (Auto) 0.4 Neut # (Auto) 4700 PT 12.3 INR 1.1 APTT 32 Sodium 143 Potassium 4.0 Chloride 108 H Carbon Dioxide 25 BUN 19 H Creatinine 0.60 Estimated GFR > 60.0 BUN/Creatinine Ratio 31.7 H Glucose 93 Calcium 9.4 Total Bilirubin 0.6 AST 34 ALT 24 Alkaline Phosphatase 67 Troponin I < 0.012 B-Natriuretic Peptide 114.0 H Total Protein 7.2 Albumin 4.4 Globulin 2.8 Albumin/Globulin Ratio 1.6 Assessment & Plan Plan: Assessment/Plan Narrative: 1. Chest pain in a person with known coronary artery disease status post CABG trend trops NM PerfScan Orders set for chest pain done Continue Home meds BBlocker and Statin and ASA 2. History of asthma treated with QVAR continue Home meds 3.Recent surgery for pelvic floor prolapse about a month and a half ago History of acute [place] 18 months ago GI and DVT prophylaxis Time Spent With Patient Time with patient: Greater than 35 minutes
[2017-11-09] MEDS: BECLOMETHASONE 80 MCG INH 10.6 GM 2 PUFF INH (20:36)
[2017-11-09] MEDS: DOCUSATE 100 MG CAPSULE PO (20:47)
[2017-11-09] MEDS: ROSUVASTATIN 10 MG TABLET 40 MG PO (20:47)
[2017-11-09] MEDS: SODIUM CHLORIDE 0.9% FLUSH 10 ML IV (20:47)
--- NOTE | 2017-11-09 21:56 | PC.NURSE ---
ADMISSION Received pt at approximately 1910 via wheelchair, accompanied by ED RN. A&Ox3, pleasant and cooperative, modified independent with ADLs. pt denies any chest pain or shortness of breath. stress test ordered for tomorrow, pt educated on no caffeine and holding of scheduled metoprolol. telemetry monitoring shows NSR. pt oriented to room, call light within reach.
[2017-11-10 00:19] VITALS: BP 130/72; PULSE 62; RESP 16; TEMP 36.3; O2SAT 98
[2017-11-10 05:45] VITALS: BP 133/73; PULSE 65; RESP 16; TEMP 36.7; O2SAT 97
[2017-11-10 06:12] LABS: Add Manual Diff / Slide Review NO; Basophils Percent Auto 0.7 % (0-2); Eosinophils Percent Auto 4.4 % (2-4); Hematocrit 38.9 % (36-46); Hemoglobin 13.3 g/dL (12.0-16.0); Lymphocytes Percent Auto 35.7 % (25-40); Mean Corpuscular HGB Conc 34.2 % (30-36); Mean Corpuscular Hemoglobin 31.8 PG (26-34); Mean Corpuscular Volume 93.1 fL (80-100); Monocytes Percent Auto 9.7 % (3-14); Neutrophils Absolute Auto 3400 /uL (3000-5900); Neutrophils Percent Auto 49.5 % (50-75); Platelet Count 169 X10^3/uL (150-400); Red Blood Cell Count 4.19 X10^6/uL (4.0-5.2); Red Cell Distribution Width 13.7 % (11.6-14.8); White Blood Cell Count 6.9 X10^3/uL (4.5-11.0)
[2017-11-10 06:21] LABS: Blood Urea Nitrogen 12 mg/dL (7-17); Calcium 9.1 mg/dL (8.4-10.2); Carbon Dioxide 23 mmol/L (22-32); Chloride 109 mmol/L (98-107); Estimated Glomerular Filt Rate > 60.0 mL/min (>60); Glucose 92 mg/dL (80-110); HEMOLYSIS < 15 (0-50); Potassium 3.6 mmol/L (3.4-5.1); Sodium 143 mmol/L (137-145)
[2017-11-10 06:33] LABS: Troponin I < 0.012 ng/mL (0.01-0.034)
[2017-11-10 07:35] VITALS: BP 110/71; PULSE 66; RESP 16; TEMP 36.7; O2SAT 97
[2017-11-10 08:12] VITALS: O2SAT 97
--- NOTE | 2017-11-10 09:14 | CM.DANOTE ---
DCP: Case received, EMR reviewed and met with patient. Introduced self and role. DCP template completed with information currently available. Patient is a 67 year old female who admitted yesterday evening to the care of the hospitalist team. PCP: Dr. Bello. Payer: confirmed: Medicare/[employer]. Patient came to hospital with symptoms of chest pain. Is here under observation, and will be having stress test. She is independent, has support of spouse as well. P: Plan is for patient to return home when stable. No needs at this time. Bianca Durant RN/[employer]
--- NOTE | 2017-11-10 10:07 | P.CONS_ITS ---
History of Present Illness Chief complaint: CHEST PAIN Narrative: 67 yo W h/o CAD s/p CABG 03/2016 in the setting of NSTEMI admitted with chest pain. Patient states that she had her rectocele surgery at about 6 weeks ago and has recovered nicely. She was sweeping her deck and her porch for about an hour and then went inside and suddenly developed chest pain. It lasted about 10-15 minutes. She did take aspirin but pain had mostly subsided by then. Her dyspnea associated with chest pain but there was no heart racing sensations, nausea, vomiting, lightheadness, or syncope. She states that her chest pain yesterday was different than the chest pressure she had with NSTEMI in 03/2016. Fam Hx: Mom and Dad both had AR in their 70s. [facility] Medical History CAD (coronary artery disease) (Acute) Surgical History History of carpal tunnel repair History of knee replacement Status post appendectomy Status post breast lumpectomy Status post hysterectomy Status post laparoscopy (04/20/15) Status post tonsillectomy and adenoidectomy Social History household members: spouse Smoking Status: Never smoker alcohol intake: never Meds Home Medications Medication Instructions Recorded Confirmed Type ACETAMINOPHEN 650 mg PO Q6HP PRN #0 09/28/11 11/09/17 History Calcium Carbonate/Vitamin D 1 cap PO Q DAY #0 09/28/11 11/09/17 History (#CALCIUM) VITAMIN B COMPLEX 1 cap PO QDAY #0 09/28/11 11/09/17 History albuterol sulfate [Ventolin HFA] 2 puff INH BID #0 09/28/11 11/09/17 History potassium chloride [Klor-Con 8] 20 meq PO QDAY #0 09/28/11 11/09/17 History Fish Oil 1,500 mg PO QDAY #0 10/14/15 11/09/17 History metoprolol tartrate 25 mg PO BID #0 01/11/17 11/09/17 History rosuvastatin 40 mg PO BEDTIME 07/31/17 11/09/17 History aspirin [Aspir-81] 81 mg PO DAILY 11/09/17 11/09/17 History beclomethasone dipropionate [Qvar 2 puff INHALATION Q12H 11/09/17 11/09/17 History RediHaler] Allergies Allergy/AdvReac Type Severity Reaction Status Date / Time celecoxib [CELECOXIB] Allergy Mild HIVES Verified 11/09/17 16:55 ciprofloxacin [From CIPRO] Allergy Mild causes c Verified 11/09/17 16:55 diff codeine [CODEINE] Allergy Mild HEART Verified 11/09/17 16:55 RACING cortisone [CORTISONE] Allergy Mild HIVES AND Verified 11/09/17 16:55 NAUSEA erythromycin base Allergy Mild FACE Verified 11/09/17 16:55 [ERYTHROMYCIN BASE] SWELLING latex [LATEX] Allergy Mild hives Verified 11/09/17 16:55 Penicillins [PENICILLINS] Allergy Mild THROAT Verified 11/09/17 16:55 SWELLING Sulfa (Sulfonamide Allergy Mild THROAT Verified 11/09/17 16:55 Antibiotics) SWELLING [SULFA (SULFONAMIDE ANTIBIOTICS)] scopolamine [SCOPOLAMINE] Allergy Unknown PT STATES Verified 11/09/17 16:55 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 [employer]APES Allergy Unknown WELTS Uncoded 11/09/17 16:55 Review of Systems Review of Systems All systems reviewed & are unremarkable except as noted in HPI and below Exam Vital Signs (past 8 hours): - 11/10/17 05:45 11/10/17 07:35 11/10/17 08:12 Temperature 98.0 F 98.0 F Pulse Rate 65 66 Respiratory Rate 16 16 Blood Pressure 133/73 H 110/71 Pulse Oximetry 97 97 97 Oxygen Delivery Method Room Air Oxygen Flow Rate 0 Narrative Exam Narrative: Gen Karen: NAD, sitting comfortable on bench in the hospital room with HEET: NCAT, no scleral icterus, MMM CV: RRR, nl S1 and S2, no m/r/g Resp: Good aeration, CTAB Abd: soft, NT, ND Neuro: moving all four extremities symmetrically, alert, no facial droop Psych: appropriate affect Objective Labs Result Diagrams: 11/10/17 05:55 11/10/17 05:55 Labs: Laboratory Results - last 24 hr 11/09/17 11/09/17 11/09/17 17:00 17:00 17:00 WBC 8.4 RBC 4.45 Hgb 14.1 Hct 41.9 MCV 94.1 MCH 31.7 MCHC 33.7 RDW 13.8 Plt Count 190 Neut % (Auto) 56.0 Lymph % (Auto) 32.1 [place] % (Auto) 9.1 Eos % (Auto) 2.4 Baso % (Auto) 0.4 Neut # (Auto) 4700 PT 12.3 INR 1.1 APTT 32 Sodium 143 Potassium 4.0 Chloride 108 H Carbon Dioxide 25 BUN 19 H Creatinine 0.60 Estimated GFR > 60.0 BUN/Creatinine Ratio 31.7 H Glucose 93 Calcium 9.4 Total Bilirubin 0.6 AST 34 ALT 24 Alkaline Phosphatase 67 Troponin I < 0.012 B-Natriuretic Peptide 114.0 H Total Protein 7.2 Albumin 4.4 Globulin 2.8 Albumin/Globulin Ratio 1.6 11/10/17 11/10/17 11/10/17 05:55 05:55 05:55 WBC 6.9 RBC 4.19 Hgb 13.3 Hct 38.9 MCV 93.1 MCH 31.8 MCHC 34.2 RDW 13.7 Plt Count 169 Neut % (Auto) 49.5 L Lymph % (Auto) 35.7 [place] % (Auto) 9.7 Eos % (Auto) 4.4 H Baso % (Auto) 0.7 Neut # (Auto) 3400 PT INR APTT Sodium 143 Potassium 3.6 Chloride 109 H Carbon Dioxide 23 BUN 12 Creatinine 0.60 Estimated GFR > 60.0 BUN/Creatinine Ratio 20.0 Glucose 92 Calcium 9.1 Total Bilirubin AST ALT Alkaline Phosphatase Troponin I < 0.012 B-Natriuretic Peptide Total Protein Albumin Globulin Albumin/Globulin Ratio ECG on admission: sinus bradycardia with non-specific ST-T changes Assessment & Plan Plan: Assessment/Plan Narrative: 67 yo W h/o CAD s/p CABG admitted with chest pain: # Chest pain: story of chest pain has typical and atypical features. There has been of chest pain since being admitted at [facility]. She is ruled out for AR and ECG on my review for no significant ST-T changes. Given that the patient has history of CAD s/p CABG (MALDONADO->diag,LAD; SVG-> OM1, Om2; SVG->PDA), I think it would be prudent to do treadmill nuclear stress test. Plan: - Continue aspirin 81mg daily - Continue rosuvastatin 40mg qhs - Ok to hold metoprolol as her HR in the 40s-50s on telemetry Thank you for the interesting consultation. Cardiology is available for further questions
[2017-11-10] MEDS: SODIUM CHLORIDE 0.9% FLUSH 10 ML IV (10:21)
[2017-11-10] MEDS: PANTOPRAZOLE 20 MG TABLET PO (10:22)
[2017-11-10] MEDS: DOCUSATE 100 MG CAPSULE PO (10:22)
[2017-11-10] MEDS: ASPIRIN EC 81 MG TABLET PO (10:22)
[2017-11-10] MEDS: ENOXAPARIN 40 MG/0.4 ML SYRINGE SUBCUT (10:22)
[2017-11-10] MEDS: POTASSIUM CHLORIDE 20 MEQ TAB PO (10:24)
[2017-11-10 10:40] LABS: Troponin I < 0.012 ng/mL (0.01-0.034)
--- NOTE | 2017-11-10 11:54 | PM.TREADMILL ---
Cardiac Stress Test Report Referral & Results Date Patient Seen: 11/10/17 Time Patient Seen: 11:55 Indication: Chest pain Rest ECG: Unremarkable Procedure Note: Today following both written and verbal informed consent the patient was exercised according to a standard [place] protocol patient went for a total of 6 min 25 sec achieving a maximum heart rate of 150 to maximum systolic blood pressure of 200. This is approximately 7.0 METS. Exercise was terminated at this point because of targets were met. Patient was also given Cardiolite through a previously started Hep-Lock IV by the fuel storage technician approximately 1 minute prior to the cessation of exercise. No ST segment changes noted Normal heart rate blood pressure response to exercise Functional aerobic impairment rated minus 10-15% on the active scale Impression: No ischemic change identified Excellent exercise capacity Perfusion imaging will be reported separately Please note: Actual ECG tracings can be found in the PACS system.
--- NOTE | 2017-11-10 11:57 | P.PCN_ITS ---
Cardiac Stress Test Report Referral & Results Date Patient Seen: 11/10/17 Time Patient Seen: 11:55 Indication: Chest pain Rest ECG: Unremarkable Procedure Note: Today following both written and verbal informed consent the patient was exercised according to a standard [place] protocol patient went for a total of 6 min 25 sec achieving a maximum heart rate of 150 to maximum systolic blood pressure of 200. This is approximately 7.0 METS. Exercise was terminated at this point because of targets were met. Patient was also given Cardiolite through a previously started Hep-Lock IV by the nuclear plant technical advisor approximately 1 minute prior to the cessation of exercise. No ST segment changes noted Normal heart rate blood pressure response to exercise Functional aerobic impairment rated minus 10-15% on the active scale Impression: No ischemic change identified Excellent exercise capacity Perfusion imaging will be reported separately Please note: Actual ECG tracings can be found in the PACS system.
[2017-11-10 13:00] VITALS: BP 141/84; PULSE 71; RESP 16; TEMP 36.5; O2SAT 97
--- NOTE | 2017-11-10 13:47 | PM.DS.1 ---
History of Present Illness Chief complaint: CHEST PAIN Narrative: This very pleasant 67-year-old lady with a history of coronary artery disease bypass graft about 18 months ago came to the ER today with a history of chest pressure lasting about 30 min earlier in the evening She had been somewhat stressed having such 5 grandchildren over to stay with her in the age 8 to14 she has also been doing a lot of work with the sleeping the deck and the porch and laundry In the interval is that she started developing pressure in the central part of the chest with no radiation to the jaw or to the arm and no association with the breathlessness or palpitations She took 3 aspirins and chewed them and the chest pain went away but since be of her underlying coronary history she came to the emergency room for further checkup The patient is chest pain-free at this time has no difficulty breathing cough or wheezing She had recently had pelvic surgery a major surgery at [facility] in September of this year she was evaluated prior to that by her triage assistant Dr. Terrazas from the patient and her says memory did think the last time she had any cardiac stress test was in the fall and she 1st became impatient with Dr. Terrazas She has had an MRI with 5 vessel bypass graft in the beginning of April of 2016 She has not had any chest pain of significance since that time until today though she has had pain in the incision area of the chest on and off Discharge Providers Date of admission: 11/09/17 18:48 vini Primary care physician: Schuyler Bello MD Consults: 11/10/17 09:28 Consult to Cardiology Routine Comment: Consulting Provider: Janine Alegria Reason for consultation: CHEST PAIN HX CABG Has provider been notified: Yes Discharge provider: Zak Lopez MD Summary Discharge Diagnosis: 1. Chest pain suggestive of angina 2. History of coronary artery bypass graft 3. Recent history of pelvic surgery 4. COPD/asthma on chronic suppression therapy with qvar Hospital Course: This very pleasant lady with a history of coronary artery disease bypass graft at about 18 months ago came to the ER following chest pain lasting about 30 min the pain was central she took aspirin at home and the pain and it went away prior to coming to the ED she has remained pain-free during her stay in the hospital at troponins are negative on serial testing and she also was seen by triage assistant Dr. Carpio and and Dr. Dr. Terrazas group the patient sees Dr. Terrazas on a regular basis last seen in September She had a nuclear medicine perfusion scan and Dr. prior haywood personally communicated to me that for prep perfusion scan was normal and she could be discharged home Status at Discharge Functional status at discharge: independent ambulation Overall status at discharge: patient is back to baseline Time Spent with Patient Greater than 30 minutes Exam Vital Signs (past 8 hours): - 11/10/17 07:35 11/10/17 08:12 Temperature 98.0 F Pulse Rate 66 Respiratory Rate 16 Blood Pressure 110/71 Pulse Oximetry 97 97 Oxygen Delivery Method Room Air Oxygen Flow Rate 0 Const General: cooperative, healthy appearing and comfortable Orientation: alert, awake and oriented x3 HENMT Head: normal to inspection Ears: hearing grossly normal bilaterally Nose: external nose normal Face and sinus: normal facial exam Eyes General: appearance normal, both eyes and all related structures Visual Castillo: normal visual castillo by confrontation Eyelids: eyelids normal Conjunctivae: conjunctivae normal Sclera: sclerae normal Cornea: corneas normal EOM: EOM intact bilaterally Neck Neck: normal visual inspection Thyroid: thyroid normal Resp Effort & Inspection: normal respiratory effort, able to speak in complete sentences, no respiratory distress and no use of accessory muscles Auscultation: clear to auscultation bilaterally Cardio Rate: regular rate Rhythm: regular rhythm Heart Sounds: S1 normal and S2 normal GI Inspection: normal to inspection Palpation: soft and no hepatosplenomegaly Skin General: no rashes or lesions noted Neuro General: alert, awake, oriented x3 and no meningeal signs Cranial Nerves: CN's II-XI intact bilaterally Cognition: normal cognition Speech: speech normal Motor: muscle tone normal throughout Extrem General: normal to inspection Psych Appearance: grossly normal Speech and Movement: speech and movement normal Mood: congruent mood Affect: normal affect Thought Process: normal Thought Content: normal Judgment: judgment good Objective Labs Result Diagrams: 11/10/17 05:55 11/10/17 05:55 Labs: Laboratory Results - last 24 hr 11/09/17 11/09/17 11/09/17 17:00 17:00 17:00 WBC 8.4 RBC 4.45 Hgb 14.1 Hct 41.9 MCV 94.1 MCH 31.7 MCHC 33.7 RDW 13.8 Plt Count 190 Neut % (Auto) 56.0 Lymph % (Auto) 32.1 [place] % (Auto) 9.1 Eos % (Auto) 2.4 Baso % (Auto) 0.4 Neut # (Auto) 4700 PT 12.3 INR 1.1 APTT 32 Sodium 143 Potassium 4.0 Chloride 108 H Carbon Dioxide 25 BUN 19 H Creatinine 0.60 Estimated GFR > 60.0 BUN/Creatinine Ratio 31.7 H Glucose 93 Calcium 9.4 Total Bilirubin 0.6 AST 34 ALT 24 Alkaline Phosphatase 67 Troponin I < 0.012 B-Natriuretic Peptide 114.0 H Total Protein 7.2 Albumin 4.4 Globulin 2.8 Albumin/Globulin Ratio 1.6 11/10/17 11/10/17 11/10/17 05:55 05:55 05:55 WBC 6.9 RBC 4.19 Hgb 13.3 Hct 38.9 MCV 93.1 MCH 31.8 MCHC 34.2 RDW 13.7 Plt Count 169 Neut % (Auto) 49.5 L Lymph % (Auto) 35.7 [place] % (Auto) 9.7 Eos % (Auto) 4.4 H Baso % (Auto) 0.7 Neut # (Auto) 3400 PT INR APTT Sodium 143 Potassium 3.6 Chloride 109 H Carbon Dioxide 23 BUN 12 Creatinine 0.60 Estimated GFR > 60.0 BUN/Creatinine Ratio 20.0 Glucose 92 Calcium 9.1 Total Bilirubin AST ALT Alkaline Phosphatase Troponin I < 0.012 B-Natriuretic Peptide Total Protein Albumin Globulin Albumin/Globulin Ratio 11/10/17 10:00 WBC RBC Hgb Hct MCV MCH MCHC RDW Plt Count Neut % (Auto) Lymph % (Auto) [place] % (Auto) Eos % (Auto) Baso % (Auto) Neut # (Auto) PT INR APTT Sodium Potassium Chloride Carbon Dioxide BUN Creatinine Estimated GFR BUN/Creatinine Ratio Glucose Calcium Total Bilirubin AST ALT Alkaline Phosphatase Troponin I < 0.012 B-Natriuretic Peptide Total Protein Albumin Globulin Albumin/Globulin Ratio Discharge Plan Discharge Plan Patient Disposition: Home Discharge Data Primary Care Provider: Schuyler Bello Attending Provider: Maria C Lopez Admit Date/Time: 11/09/17 18:48 Quality VTE Deep Vein Thrombosis/Pulmonary Embolism Present on Admission: No
== END 2017-11-10 14:50 | disposition home or self-care (01) ==
LOC: ED 18:34 → AC 18:49
PROVIDERS: Internal Medicine Cardiovascular Disease; Admitting Provider Internal Medicine; Emergency Provider Emergency Medicine; Family Provider Family Medicine; PCP Family Medicine; Visit Provider Internal Medicine
DX: R07.9 Chest pain, unspecified (principal); I25.10 Atherosclerotic heart disease of native coronary artery without angina pectoris; Z95.1 Presence of aortocoronary bypass graft; I25.2 Old myocardial infarction; J45.909 Unspecified asthma, uncomplicated
CPT/HCPCS: 36415; 36591; 71045; 78451; 80048; 80053; 83880; 84484; 85025; 85610; 85730; 93005; 93010; 93016; 93017; 93018; 94640; 99283; 99285; G0378; A9502; J1650

== ENCOUNTER → 2018-12-25 20:45 | Outpatient (CLI) | payer MEDICARE, OTHER, SELFPAY ==
[2017-11-09 19:20] VITALS: BMI 35.1
== END ==
PROVIDERS: Family Provider Family Medicine; PCP Family Medicine; Visit Provider Nurse Practitioner
DX: J02.9 Acute pharyngitis, unspecified (principal)
CPT/HCPCS: 87070

== ENCOUNTER → 2019-04-24 16:38 | Outpatient (CLI) | payer MEDICARE, OTHER, SELFPAY ==
[2017-11-09 19:20] VITALS: BMI 35.1
[2019-04-24 18:12] LABS: Erythrocyte Sedimentation Rate 5 MM/HR (0-20)
[2019-04-24 18:17] LABS: C-Reactive Protein Quant < 0.5 mg/dL (<1.0)
== END ==
PROVIDERS: Family Provider Family Medicine; PCP Family Medicine; Referring Provider Ophthalmology; Visit Provider Ophthalmology
DX: G44.89 Other headache syndrome (principal)
CPT/HCPCS: 36415; 85651; 86140

== ENCOUNTER → 2019-06-04 11:49 | Outpatient (CLI) | payer MEDICARE, OTHER, SELFPAY ==
[2017-11-09 19:20] VITALS: BMI 35.1
--- NOTE | 2019-06-04 | DI.US.S_ITS ---
PROCEDURE: US CAROTID DOPPLER BI INDICATIONS: ATHEROSCLEROTIC HEART DISEASE OF [place] CORONARY ARTERTY TECHNIQUE: Color and pulse Doppler interrogation was performed of both carotid systems, with image documentation and velocity measurements. COMPARISON: None. FINDINGS: Stenosis calculations are based on SRU (Society of Radiologists in Ultrasound) criteria. Right side: Brachial blood pressure: 142/77 mm Hg. Common carotid artery peak systolic velocity: 98 cm/sec. Internal carotid artery peak systolic velocity: 79 cm/sec. Internal carotid artery end diastolic velocity: 21 cm/sec. External carotid artery peak systolic velocity: 97 cm/sec. ICA/CCA peak systolic ratio: 0.8. Fournier scale imaging description: Mild to moderate soft and calcific plaque Percent internal carotid artery stenosis: Less than 50% stenosis. Vertebral artery: Flow direction is antegrade. Left side: Brachial blood pressure: 141/79 mm Hg. Common carotid artery peak systolic velocity: 75 cm/sec. Internal carotid artery peak systolic velocity: 103 cm/sec. Internal carotid artery end diastolic velocity: 34 cm/sec. External carotid artery peak systolic velocity: 100 cm/sec. ICA/CCA peak systolic ratio: 1.4. Fournier scale imaging description: Mild calcific plaque Percent internal carotid artery stenosis: Less than 50% stenosis. Vertebral artery: Flow direction is antegrade. IMPRESSION: Less than 50% stenosis at the proximal internal carotid arteries bilaterally, vertebral arteries show antegrade flow, no significant stenosis found. Dictated by: Keshav Orellana M.D. on 06/04/2019 at 13:21 Approved by: Keshav Orellana M.D. on 06/04/2019 at 13:29
== END ==
PROVIDERS: Family Provider Family Medicine; PCP Family Medicine; Referring Provider Family Medicine; Visit Provider Specialist
DX: I65.23 Occlusion and stenosis of bilateral carotid arteries (principal); I25.10 Atherosclerotic heart disease of native coronary artery without angina pectoris
CPT/HCPCS: 93880

== ENCOUNTER 2019-10-11 15:44 | Emergency (ER) | payer MEDICARE, OTHER, SELFPAY ==
[2017-11-09 19:20] VITALS: BMI 35.1
[2019-10-11 15:55] VITALS: BP 199/82; PULSE 64; RESP 16; TEMP 36.3; O2SAT 97; BMI 32.8
[2019-10-11 16:29] LABS: Bacteria Urine None Seen; RBC Urine None Seen (0-5/HPF)
[2019-10-11 16:35] LABS: WBC Urine 5-10/HPF (0-5/HPF)
[2019-10-11 16:36] LABS: Culture Indicated Urine Cult Not Indicated; Squamous Epithelial Cell Urine 5-10 /HPF (0-5/HPF)
--- NOTE | 2019-10-11 18:04 | ED_ITS ---
HPI - Extremity Problem <FREDERICK Huang - Last Filed: 10/11/19 21:55> General Chief complaint: Extremity Problem,Nontraumatic Stated complaint: Veins In Arms and Ankles Swelling, Extra Blue Time Seen by Provider: 10/11/19 17:51 Source: patient Mode of arrival: Ambulatory Limitations: no limitations History of Present Illness HPI Narrative: This is a 69-year-old female, nonsmoker, who has history of cardiac bypass surgery and currently taking baby aspirin daily, presents to ED with her spouse with chief complain of easily bruising, prominent bilateral arm veins in dorsal wrist, increase in bilateral leg varicose vein worse in right leg without redness, calf pain, swelling during last 1-2 weeks. Patient noticed slight swelling in right ankle. Patient denies injuries or trauma to affected sites. Patient denies recent surgery, prolonged bed rest, history of cancer or treatment or blood clots. Patient denies fever, chills, nausea or vomiting. She Called Dr. Terrazas (cardiolgoist) office and was suggested going to ER for DVT study. Patient reports otherwise she is doing well and denies any other chief complaints including urinary symptoms. Related Data Home Medications Medication Instructions Recorded Confirmed ACETAMINOPHEN 650 mg PO Q6HP PRN #0 09/28/11 01/07/19 Calcium Carbonate/Vitamin D 1 cap PO Q DAY #0 09/28/11 01/07/19 (#CALCIUM) VITAMIN B COMPLEX 1 cap PO QDAY #0 09/28/11 01/07/19 albuterol sulfate [Ventolin HFA] 2 puff INH BID #0 09/28/11 01/07/19 potassium chloride [Klor-Con 8] 20 meq PO QDAY #0 09/28/11 01/07/19 Fish Oil 1,500 mg PO QDAY #0 10/14/15 01/07/19 metoprolol tartrate 25 mg PO BID #0 01/11/17 01/07/19 rosuvastatin 40 mg PO BEDTIME 07/31/17 01/07/19 aspirin [Aspir-81] 81 mg PO DAILY 11/09/17 01/07/19 beclomethasone dipropionate [Qvar 2 puff INHALATION Q12H 11/09/17 01/07/19 RediHaler] Allergies Allergy/AdvReac Type Severity Reaction Status Date / Time celecoxib [CELECOXIB] Allergy Mild HIVES Verified 10/11/19 15:55 ciprofloxacin [From CIPRO] Allergy Mild causes c Verified 10/11/19 15:55 diff codeine [CODEINE] Allergy Mild HEART Verified 10/11/19 15:55 RACING cortisone [CORTISONE] Allergy Mild HIVES AND Verified 10/11/19 15:55 NAUSEA erythromycin base Allergy Mild FACE Verified 10/11/19 15:55 [ERYTHROMYCIN BASE] SWELLING latex [LATEX] Allergy Mild hives Verified 10/11/19 15:55 Penicillins [PENICILLINS] Allergy Mild THROAT Verified 10/11/19 15:55 SWELLING Sulfa (Sulfonamide Allergy Mild THROAT Verified 10/11/19 15:55 Antibiotics) SWELLING [SULFA (SULFONAMIDE ANTIBIOTICS)] scopolamine [SCOPOLAMINE] Allergy Unknown PT STATES Verified 10/11/19 15:55 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 HEENT: Denies sinus pain, ear pain, sore throat, difficulty swallowing, dizziness. Respiratory: Denies dyspnea, cough, wheezing, hemoptysis, sputum. Cardiovascular: Denies chest pain, palpitations, orthopnea, edema. Gastrointestinal: Denies nausea, vomiting, abdominal pain, diarrhea, constipation, melena. : Denies dysuria, frequency, incontinence, hematuria, urinary retention. Musculoskeletal: See HPI Skin: See HPI Neurologic: Denies weakness, headache, numbness, change in speech, confusion, seizures, incoordination. Psychiatric: No concerning psychosocial issues. 12-point review of systems is negative except for those stated above. Patient History <FREDERICK Huang - Last Filed: 10/11/19 21:55> Medical History CAD (coronary artery disease) (Acute) History of [place] (myocardial infarction) (Acute) Surgical History History of carpal tunnel repair History of coronary artery bypass, five (Acute) History of knee replacement Status post appendectomy Status post breast lumpectomy Status post hysterectomy Status post laparoscopy (04/20/15) Status post tonsillectomy and adenoidectomy Social History household members: spouse Smoking Status: Never smoker alcohol intake: never Smoking Status: Never smoker alcohol intake frequency: 0-2 drinks per day Substance Use Type: does not use Exam <FREDERICK Huang - Last Filed: 10/11/19 21:55> Narrative Exam Narrative: General appearance: well developed, well nourished, in no acute distress. Head: normocephalic, atraumatic, no scalp lesions, non-tender. ENT: Hearing grossly intact. Airway patent. Neck/Thyroid: neck supple, full range of motion, no visible masses or meningeal signs. No JVD, non-tender without lymphadenopathy. Skin: Varicose vein in right anterior leg. Bilateral inner wrist pain prominent in collar and size but no other signs of bruise or bleeding. No suspicious rashes, lesions over visible areas. Warm and dry and appropriate color for ethnicity. Heart: no clubbing, no cyanosis, no edema. S1 and S2 normal. RRR w/o murmurs, clicks, or bruits. Lungs: Breathing even and unlabored. No stridor. No accessory muscles used. Able to speak in full sentences. Chest: normal shape and expansion. Abdomen: non-obese, non-distended. Neurologic: alert and oriented. Cognitive exam, [employer] and PNS grossly intact on informal exam. Psych: good eye contact, normal affect. Initial Vital Signs Initial Vital Signs: Vital Signs Temperature 97.4 F L 10/11/19 15:55 Pulse Rate 64 10/11/19 15:55 Respiratory Rate 16 10/11/19 15:55 Blood Pressure 199/82 H 10/11/19 15:55 Pulse Oximetry 97 10/11/19 15:55 Extrem Right upper extremity: hand Details: normal to inspection, normal capillary refill, neuromotor exam normal, neurosensory exam normal, tendon exam normal, vascular exam Details: radial pulse present and normal ROM of fingers; no tenderness Left upper extremity: hand Details: normal to inspection, normal capillary refill, neuromotor exam normal, neurosensory exam normal, tendon exam normal, v ascular exam Details: radial pulse present, normal ROM of fingers and no swe lling; no tenderness and no unusual warmth Right lower extremity: lower leg Details: no edema, abrasion, laceration and ecchymosis (Anterior leg with varicose vein); no tenderness, no localized swelling, no palpable cords, no penetrating wound, no deformity and no unusual warmth and foot Details: normal capillary refill, normal to inspection, toes with normal ROM, no edema, vascular exam Details: dorsalis pedis pulse present and normal capillary refill and tendon exam Details: active flexion normal and active extension normal; no tenderness and no unusual warmth Left lower extremity: lower leg Details: normal to inspection; no erythema, no tenderness, no localized swelling, no ecchymosis and no unusual warmth and foot Details: normal capillary refill, normal to inspection, toes with normal ROM, ab normal ROM of toe, no edema, vascular exam Details: dorsalis pedis pulse present and normal capillary refill, tendon exam Details: active flexion normal and active extension normal and motor-sensory exam Details: light-touch normal; no tenderness and no unusual warmth <Aditya Hernandez MD - Last Filed: 10/12/19 08:34> Initial Vital Signs Initial Vital Signs: Vital Signs Temperature 97.4 F L 10/11/19 15:55 Pulse Rate 64 10/11/19 15:55 Respiratory Rate 16 10/11/19 15:55 Blood Pressure 199/82 H 10/11/19 15:55 Pulse Oximetry 97 10/11/19 15:55 Scores <FREDERICK Huang - Last Filed: 10/11/19 21:55> GCS Wendi coma scale eye opening: Spontaneous Wendi coma scale verbal response: Orientated Wendi coma scale motor response: Obey commands [place] coma scale total score: 15 Wells' Criteria for DVT Active Cancer (Treatment within 6 months): No Bedridden recently >3 days or major surgery within 4 weeks: No Calf Swelling >3cm compared to other leg: No Collateral (nonvericose) superficial veins present: No Entire leg swollen: No Localized tenderness along the deep vein system: No Pitting edema, confined to symtomatic leg: No Paralysis, paresis, or recent plaster immobilization of ext: No Previously documented DVT: No Alternative dx to DVT as likely or more likely: No Wells' criteria for DVT: 0 Course <Brendan BustilloFREDERICK Infante - Last Filed: 10/11/19 21:55> Orders Ordered: ED Orders 10/11/19 16:06 Urine Microscopic Stat 10/11/19 19:00 Complete Blood Count AUTO DIFF Stat D Dimer Stat Partial Thromboplastin Time Stat Prothrombin Time INR Stat Vital Signs Vital signs: Vital Signs - 8 hr 10/11/19 15:55 10/11/19 19:38 Temperature 97.4 F L Pulse Rate 64 61 Respiratory Rate 16 17 Blood Pressure 199/82 H 135/73 Pulse Oximetry 97 96 <Aditya Hernandez MD - Last Filed: 10/12/19 08:34> Orders Ordered: ED Orders 10/11/19 16:06 Urine Microscopic Stat 10/11/19 19:00 Complete Blood Count AUTO DIFF Stat D Dimer Stat Partial Thromboplastin Time Stat Prothrombin Time INR Stat Vital Signs Vital signs: Vital Signs - 8 hr 10/11/19 15:55 10/11/19 19:38 Temperature 97.4 F L Pulse Rate 64 61 Respiratory Rate 16 17 Blood Pressure 199/82 H 135/73 Pulse Oximetry 97 96 MDM - Extremity (Nontraumatic) <Brendan CarrionFREDERICK Infante - Last Filed: 10/11/19 21:55> Differential Diagnosis Differential diagnosis: Likely cellulitis, superficial thrombophlebitis, deep venous thrombosis of upper extremity, deep vein thrombosis of lower extremity and other (coagulation abnormality) Medical Records Attestation: I reviewed the patient's medical records. Lab Data Attestation: I reviewed the patient's lab results. Result diagrams: 10/11/19 19:00 Labs: Lab Results 10/11/19 10/11/19 10/11/19 Range/Units 16:06 19:00 19:00 WBC 6.5 (4.5-11.0) X10^3/uL RBC 4.77 (4.0-5.2) X10^6/uL Hgb 15.0 (12.0-16.0) g/dL Hct 44.2 (36-46) % MCV 92.7 (80-100) fL MCH 31.4 (26-34) PG MCHC 33.8 (30-36) % RDW 13.6 (11.6-14.8) % Plt Count 165 (150-400) X10^3/uL Neut % (Auto) 53.8 (50-75) % Lymph % (Auto) 34.9 (25-40) % [place] % (Auto) 8.4 (3-14) % Eos % (Auto) 2.3 (2-4) % Baso % (Auto) 0.6 (0-2) % Neut # (Auto) 3500 (5589-4480) /uL Lymph # (Auto) 2300 (1254-1530) /uL [place] # (Auto) 500 (0-900) /uL Eos # (Auto) 100 (0-450) /uL Baso # (Auto) 0 (0-100) /uL PT 12.0 (10.1-12.7) SECONDS INR 1.0 (0.9-1.3) APTT 36 D (26.4-36.2) SECONDS D-Dimer 200 (<230) ng/mL Urine RBC None seen (0-5/HPF) Urine WBC 5-10/hpf H (0-5/HPF) Ur Squamous Epith Cells 5-10 /hpf H (0-5/HPF) Urine Bacteria None seen (None) Ur Culture Indicated? Cult not indicated Urine Dip Bedside Urine Glucose Negative Bedside Urine Bilirubin - Negative Bedside Urine Ketone - Negative Urine Specific [place] 1.015 Bedside Urine Occult Blood - Negative Bedside Urine pH 6.0 Bedside Urine Protein - Negative Bedside Urine Urobilinogen - Negative Bedside Urine Nitrite - Negative Bedside Urine Leukocytes +++ 500 Esterase MDM Narrative Medical decision making narrative: This is a 69 year female who presents to ED with ease sleep bruising, prominent bilateral dorsal wrist veins, more prominent varicose vein in right bates. Patient denies constitutional symptoms, pain in all extremities, redness, warmth on affected sites. Patient reports very mild swelling to right leg. Patient is currently taking baby aspirin daily after CABG and [place]. Wells criteria for DVT score was 0. CBC, coag test, D-dimers were within normal limits. It is unlikely patient has DVT at this time. Findings were discussed with patient and spouse and advised to continue to monitor for increased bruising or other bleeding and to follow-up with primary care physician as needed. Patient provided urine sample at triage. Positive leukocytes esterase and negative for urine nitrites. Micro urine test shows squamous epithelia cells with 5-10 hpf of urine WBC and no bacteria. It is likely urine sample is contaminated but will wait for the urine culture test. No antibiotic medication treatment has been started. <Aditya Hernandez MD - Last Filed: 10/12/19 08:34> Lab Data Labs: Lab Results 10/11/19 10/11/19 10/11/19 Range/Units 16:06 19:00 19:00 WBC 6.5 (4.5-11.0) X10^3/uL RBC 4.77 (4.0-5.2) X10^6/uL Hgb 15.0 (12.0-16.0) g/dL Hct 44.2 (36-46) % MCV 92.7 (80-100) fL MCH 31.4 (26-34) PG MCHC 33.8 (30-36) % RDW 13.6 (11.6-14.8) % Plt Count 165 (150-400) X10^3/uL Neut % (Auto) 53.8 (50-75) % Lymph % (Auto) 34.9 (25-40) % [place] % (Auto) 8.4 (3-14) % Eos % (Auto) 2.3 (2-4) % Baso % (Auto) 0.6 (0-2) % Neut # (Auto) 3500 (0808-5356) /uL Lymph # (Auto) 2300 (3932-4806) /uL [place] # (Auto) 500 (0-900) /uL Eos # (Auto) 100 (0-450) /uL Baso # (Auto) 0 (0-100) /uL PT 12.0 (10.1-12.7) SECONDS INR 1.0 (0.9-1.3) APTT 36 D (26.4-36.2) SECONDS D-Dimer 200 (<230) ng/mL Urine RBC None seen (0-5/HPF) Urine WBC 5-10/hpf H (0-5/HPF) Ur Squamous Epith Cells 5-10 /hpf H (0-5/HPF) Urine Bacteria None seen (None) Ur Culture Indicated? Cult not indicated Urine Dip Bedside Urine Glucose Negative Bedside Urine Bilirubin - Negative Bedside Urine Ketone - Negative Urine Specific [place] 1.015 Bedside Urine Occult Blood - Negative Bedside Urine pH 6.0 Bedside Urine Protein - Negative Bedside Urine Urobilinogen - Negative Bedside Urine Nitrite - Negative Bedside Urine Leukocytes +++ 500 Esterase Discharge Plan Departure Patient Disposition: Home Clinical Impression: Bruises easily Discharge Date/Time: 10/11/19 19:51 Activity Restrictions/Additional Instructions: You have been diagnosed with [easy bruising. Lab tests are unremarkable including CBC, D-dimer, PT and PTT. Platelet count is 165 which is within normal limits. Your urine is being cultured and you will receive a phone call if it indicates you need antibiotic medication. Currently you stated you do not have any urinary symptoms.]. What to do: *Take your medications as directed. *Follow up with your primary care provider in 2-3 days, call for an appointment. Let them know you were seen in the ED and that we asked you to be seen in follow up. *Return to ED if you have any new, worsening, or concerning symptoms, such as [chest pain, breathing difficulty, unable to tolerate fluids, bleeding in your urine, stool, from gums, abdominal pain, feeling like faint or any acute concerns]. Prescriptions: No Action potassium chloride [Klor-Con 8] 8 MEQ tablet extended release 20 meq PO QDAY Qty: 0 RF: 0 VITAMIN B COMPLEX 1 cap PO QDAY Qty: 0 RF: 0 ACETAMINOPHEN 650 mg PO Q6HP PRN (Reason: Pain, Mild) Qty: 0 RF: 0 albuterol sulfate [Ventolin HFA] 90 MCG/PUFF HFA aerosol inhaler 2 puff INH BID Qty: 0 RF: 0 Calcium Carbonate/Vitamin D (#CALCIUM) 1 cap PO Q DAY Qty: 0 RF: 0 Fish Oil 1,500 mg PO QDAY Qty: 0 RF: 0 metoprolol tartrate 25 MG tablet 25 mg PO BID Qty: 0 RF: 0 beclomethasone dipropionate [Qvar RediHaler] 80 mcg/actuation Hfa Aerosol Breath Activated 2 puff INHALATION Q12H RF: 0 aspirin [Aspir-81] 81 mg Tablet,Delayed Release (Dr/Ec) 81 mg PO DAILY RF: 0 rosuvastatin 40 mg tablet 40 mg PO BEDTIME RF: 0 Referrals: Schuyler Bello MD [Primary Care Provider] -
[2019-10-11 19:22] LABS: Add Manual Diff / Slide Review NO; Basophils Absolute Auto 0 /uL (0-100); Basophils Percent Auto 0.6 % (0-2); Eosinophils Absolute Auto 100 /uL (0-450); Eosinophils Percent Auto 2.3 % (2-4); Hematocrit 44.2 % (36-46); Lymphocytes Absolute Auto 2300 /uL (1100-4500); Lymphocytes Percent Auto 34.9 % (25-40); Mean Corpuscular HGB Conc 33.8 % (30-36); Mean Corpuscular Hemoglobin 31.4 PG (26-34); Mean Corpuscular Volume 92.7 fL (80-100); Monocytes Absolute Auto 500 /uL (0-900); Monocytes Percent Auto 8.4 % (3-14); Neutrophils Absolute Auto 3500 /uL (1500-7000); Neutrophils Percent Auto 53.8 % (50-75); Platelet Count 165 X10^3/uL (150-400); Red Blood Cell Count 4.77 X10^6/uL (4.0-5.2); Red Cell Distribution Width 13.6 % (11.6-14.8); White Blood Cell Count 6.5 X10^3/uL (4.5-11.0)
[2019-10-11 19:25] LABS: D Dimer 200 ng/mL (<230); PTT Partial Thromboplastin Tim 36 SECONDS (26.4-36.2)
--- NOTE | 2019-10-11 19:27 | PC.NURSE ---
Pt has multiple spider veins on lower extremities. Pt also states that on her lower arms she had blue streaks next to her veins but states they are gone now.
[2019-10-11 19:38] VITALS: BP 135/73; PULSE 61; RESP 17; O2SAT 96
== END 2019-10-11 19:51 | disposition home or self-care (01) ==
PROVIDERS: Emergency Medicine; Emergency Provider Nurse Practitioner Family; Family Provider Family Medicine; PCP Family Medicine
DX: R23.8 Other skin changes (principal); M79.662 Pain in left lower leg; M79.661 Pain in right lower leg; M25.532 Pain in left wrist; M25.531 Pain in right wrist; Z79.82 Long term (current) use of aspirin; R79.89 Other specified abnormal findings of blood chemistry
CPT/HCPCS: 36415; 81003; 81015; 85025; 85379; 85610; 85730; 87077; 87086; 87147; 87186; 99283

== ENCOUNTER → 2019-11-11 13:48 | Outpatient (CLI) | payer MEDICARE, OTHER, SELFPAY ==
[2017-11-09 19:20] VITALS: BMI 35.1
[2019-11-11 15:20] LABS: BUN Creatinine Ratio 24.6 (6-22); Blood Urea Nitrogen 16 mg/dL (7-17); Calcium 9.7 mg/dL (8.4-10.2); Carbon Dioxide 28 mmol/L (22-32); Chloride 106 mmol/L (98-107); Estimated Glomerular Filt Rate > 60.0 mL/min (>60); Glucose 99 mg/dL (80-110); HEMOLYSIS < 15 (0-50); Sodium 139 mmol/L (137-145)
== END ==
PROVIDERS: Family Provider Family Medicine; PCP Family Medicine; Referring Provider Podiatrist; Visit Provider Podiatrist
DX: Z01.818 Encounter for other preprocedural examination (principal); Z01.812 Encounter for preprocedural laboratory examination
CPT/HCPCS: 36415; 80048; 93005

== ENCOUNTER → 2019-11-12 11:25 | Outpatient (CLI) | payer MEDICARE, OTHER, SELFPAY ==
[2017-11-09 19:20] VITALS: BMI 35.1
[2019-11-13 09:37] LABS: COVID19 Sendout Not Detected (Not Detect)
== END ==
PROVIDERS: Family Provider Family Medicine; PCP Family Medicine; Visit Provider Physician Assistant
DX: Z11.59 Encounter for screening for other viral diseases (principal)
CPT/HCPCS: 87635

== ENCOUNTER 2019-11-15 10:01 | Day surgery (SDC) | payer MEDICARE, OTHER, SELFPAY ==
[2017-11-09 19:20] VITALS: BMI 35.1
[2019-11-08 07:39] VITALS: BMI 37.4
[2019-11-15] MEDS: LACTATED RINGERS 1,000 ML 100 ML IV (10:21)
[2019-11-15 10:28] VITALS: BP 153/87; PULSE 67; RESP 20; TEMP 36.3; O2SAT 99; BMI 37.4
--- NOTE | 2019-11-15 11:39 | PM.PREOP ---
Pre-operative Note COVID-19 COVID-19 status: Negative Result date/Date tested (Pos, Neg/Pending): 11/15/19 Interval Note History & Physical reviewed/Exam performed by Physician: Yes Changes to H&P: No
--- NOTE | 2019-11-15 11:40 | PM.OP.1 ---
Operative Date/Time/Diagnoses Date of procedure: 11/15/19 Time of procedure: 11:40 Pre-op diagnosis: Left foot bunion, tailor's bunionette, and possible ganglion cyst Post-op diagnosis: other (Left foot bunion, tailor's bunionette) Procedure & Clinicians Procedure: Left foot bunionectomy Left foot tailor's bunionectomy Same procedure as scheduled: No (Left foot bunionectomy, left foot tailor's bunionectomy) Indications: Painful bunions to the left foot conservative measures failed to alleviate her pain and she wished to have surgical intervention at this time. We spoke of the risks, potential complications, expected outcomes. Consent was signed, no contraindications to the procedure at this time. Surgeon: Leena Pleitez Click Yes if Unassisted: Yes Anesthesia Type: MAC +/-, Sedation and Local Operative Notes Closure Type: primary Specimen(s): none sent Estimated Blood Loss (mL): 20 Blood products transfused: none Tourniquet time (min): 27 Procedure in detail: The patient was brought to the operating room and placed on the operating table in the supine position. Tourniquet was placed about the left ankle. Well padded appropriately aligned. After induction of anesthesia the left foot was anesthetized using the recorded injectibles and the foot and ankle were prepped and draped in the usual aseptic manner. The tourniquet was inflated. Incision was made over the 1st metatarsal phalangeal joint. The incision was deepened through subcutaneous tissues being careful to identify and retract all vital neurovascular structures. All bleeders were cauterized and ligated as necessary. A medial capsulotomy was performed to the 1st MTPJ exposing the enlarged medial eminence. The saw was used to resect the medial eminence and the edges were smoothed. The area was irrigated with copious amounts normal sterile saline. Next an incision was made over the fifth metatarsal phalangeal joint. The incision was deepened through subcutaneous tissues being careful to identify and retract all vital neurovascular structures. All bleeders were cauterized and ligated as necessary. A dorsolateral capsulotomy was performed to the fifth MTPJ exposing the enlarged lateral eminence which appeared also to have a spur on it. The saw was used to resect the lateral eminence and the edges were smoothed. The area was irrigated with copious amounts of normal sterile saline. The great toe was placed in linear alignment and the medial 1st MTP capsule was resected and repaired with Vicryl. The lateral fifth MTP capsule was repaired with vicryl. The tourniquet was deflated and a prompt hyperemic response was seen in the foot. Deep and subcutaneous closure was closed performed with Vicryl and Nylon suture to the skin. The foot was dressed with a lightly compressive sterile dressing and splint in alignment. Patient was then placed in a postoperative shoe and transferred to PACU with vital signs stable. Complications: none Post-operative Condition: stable Disposition: PACU Plan for aftercare: Following a period of postoperative monitoring, the patient be discharged home on written and oral postoperative instructions including keeping the dressing dry and intact, avoiding significant ambulation on the foot, icing and elevating the foot when seated home. DVT prevention techniques have been reviewed. For the 1st postoperative visit the dressing will be changed and close to the 2nd or 3rd postoperative week we will likely remove the sutures.
[2019-11-15] MEDS: CLINDAMYCIN 600 MG/50 ML PIGGYBACK 50 MG IV (12:00)
--- NOTE | 2019-11-15 12:29 | SUR.OPER ---
Supine on padded OR bed, head on pillow, arms secured on padded arm boards at <90 degrees abduction, legs uncrossed, safety belt at thigh, tape over blanket over lower legs.
[2019-11-15] MEDS: BUPIVACAINE 0.5% (PF) VIAL 30 ML INJ (12:40)
[2019-11-15] MEDS: LIDOCAINE 2% INJ SDV 5 ML INJ (12:44)
[2019-11-15 13:26] VITALS: BP 118/97; PULSE 73; RESP 17; TEMP 36.2; O2SAT 96
[2019-11-15 13:32] VITALS: BP 119/62; PULSE 66; RESP 11; TEMP 35.8; O2SAT 97
[2019-11-15 13:36] VITALS: BP 130/69; PULSE 71; RESP 14; TEMP 35.9; O2SAT 95
[2019-11-15 14:01] VITALS: BP 127/70; PULSE 66; RESP 16; TEMP 36.5; O2SAT 96
[2019-11-15 14:30] VITALS: BP 131/67; PULSE 69; RESP 16; TEMP 36.7; O2SAT 98
--- NOTE | 2019-11-15 15:16 | SUR.PHASEII ---
Bedpan used x 2, brought surgical shoe in, d/c instructions discussed, both voiced an understanding. Assisted pt to dress, dressing remained c/d/i and iced and elevated while in phase 2. Pt left in stable condition.
== END 2019-11-15 14:50 | disposition home or self-care (01) ==
PROVIDERS: Family Provider Family Medicine; PCP Family Medicine; Referring Provider Family Medicine; Visit Provider Podiatrist
PROC: (CPT 28090; principal; 2019-11-15 11:15)
PROC: 0QBP0ZZ Excision of Left Metatarsal, Open Approach (ICD-10-PCS; CPT 28292; 2019-11-15 11:15)
DX: M21.612 Bunion of left foot (principal); M21.622 Bunionette of left foot; I25.10 Atherosclerotic heart disease of native coronary artery without angina pectoris; Z95.1 Presence of aortocoronary bypass graft; I10 Essential (primary) hypertension; J45.909 Unspecified asthma, uncomplicated
CPT/HCPCS: 28292; 28110; J2250; J2704; J3010

== ENCOUNTER 2019-12-11 17:06 | Emergency (ER) | payer MEDICARE, OTHER, SELFPAY ==
[2017-11-09 19:20] VITALS: BMI 35.1
[2019-12-11 17:17] VITALS: BP 198/91; PULSE 73; RESP 16; TEMP 36.9; O2SAT 98; BMI 34.7
--- NOTE | 2019-12-11 17:41 | DI.RAD.S_ITS ---
PROCEDURE: XR FOOT LT MIN 3V INDICATIONS: s/p bunionectomy, infection, cellulitis? TECHNIQUE: 3 views of the foot were acquired. COMPARISON: [facility], CR, XR FOOT 3+ VIEWS LEFT, 12/06/2018, 13:25. FINDINGS: Bones: No acute fractures or dislocations. There are interval postsurgical changes along the lateral aspect of the 5th metatarsal head and medial aspect of the 1st metatarsal head compatible with bunionectomies. There is indistinct lucency within the medial aspect of the 1st metatarsal head. No definite cortical erosions. Visualized osseous structures appear osteopenic. Mild periosteal thickening is noted along the medial aspect of the 2nd and 3rd metatarsals which are nonspecific and may represent sequelae of stress reactions. No discrete fracture identified. There is moderate midfoot degeneration most prominent along the 2nd and 3rd tarsometatarsal joints. Mild to moderate degeneration is demonstrated along the tibiotalar joint. There is a mild hallux valgus. Soft tissues: There is mild periarticular soft tissue swelling along the 1st and 5th metatarsophalangeal joints. IMPRESSION: 1. Postsurgical changes of the 1st and 5th metatarsal heads as described. 2. Indistinct lucency within the medial 1st metatarsal head is nonspecific but osteomyelitis cannot be excluded. No discrete bony cortical erosions. 3. Periosteal thickening along the 2nd and 3rd metatarsal shafts may represent stress reactions. The differential includes sequelae of infection. No associated fracture identified. 4. Moderate midfoot degeneration. Dictated by: Edson Miranda M.D. on 12/11/2019 at 18:14 Approved by: Edson Miranda M.D. on 12/11/2019 at 18:18
--- NOTE | 2019-12-11 17:52 | ED_ITS ---
HPI - Skin/Abscess/Foreign Bdy <Brendan FREDERICK Contreras - Last Filed: 12/11/19 22:52> General Chief complaint: Skin/Abscess/Foreign Body Stated complaint: thinks infection in left foot Time Seen by Provider: 12/11/19 17:26 Source: patient Mode of arrival: Ambulatory Limitations: no limitations History of Present Illness HPI narrative: This is a 69 female, nonsmoker, who has history of bunionectomy on 11/15/[address] Pleitez presents to ED with her spouse with chief complain of possible right foot infection on left lateral dorsal foot in surgical site. Patient reports she was doing well after the surgery and seen by Dr. Pleitez 1st postop appointment and she was pleased with findings. Yesterday patient noticed purulent discharge from 5th metatarsal surgical incision site with associated symptoms of severe pain, red and warmth. When she woke up this morning pain subsided a little and improved from yesterday. Patient is able to move her toes and reports intact sensations. states a buckle from a orhtoshoe is rubbing on affected site in lateral metatarsal and wonder if this could be the cause of infection. Patient denies fever, chills, nausea or vomiting. Next kurtis ointment scheduled in 6 days. Related Data Home Medications Medication Instructions Recorded Confirmed acetaminophen 325 mg PO PRN PRN #0 09/28/11 11/15/19 albuterol sulfate [Ventolin HFA] 2 puff INH BID #0 09/28/11 11/15/19 calcium carbonate-vitamin D3 1 cap PO DIRECTED #0 09/28/11 11/15/19 [Calcium 600 + D(3)] vitamin B complex 1 cap PO DAILY #0 09/28/11 11/08/19 Fish Oil 1,500 mg PO QDAY #0 10/14/15 01/07/19 metoprolol tartrate 12.5 mg PO QAM #0 01/11/17 11/15/19 rosuvastatin 40 mg PO BEDTIME 07/31/17 11/15/19 aspirin [Aspir-81] 81 mg PO DAILY 11/09/17 11/15/19 Saccharomyces boulardii 250 mg PO BID 11/08/19 11/08/19 beclomethasone dipropionate [Qvar 1 inh INHALATION BEDTIME 11/08/19 11/15/19 RediHaler] docusate sodium 100 mg PO DAILY PRN 11/08/19 11/15/19 ezetimibe 10 mg PO DAILY 11/08/19 11/15/19 ibuprofen 200 mg PO Q8H PRN 11/08/19 11/08/19 potassium chloride 20 meq PO DAILY 11/08/19 11/15/19 rivastigmine [Exelon] 1 patch TRANSDERMAL DAILY 11/08/19 11/15/19 Previous Rx's Medication Instructions Recorded cephalexin [Keflex] 500 mg PO Q6H 7 Days #28 cap 12/11/19 Allergies Allergy/AdvReac Type Severity Reaction Status Date / Time Penicillins [PENICILLINS] Allergy Severe HIVES, Verified 12/11/19 17:17 THROAT, TONGUE SWELLING scopolamine [SCOPOLAMINE] Allergy Severe PT STATES Verified 12/11/19 17:17 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, extreme agitation Sulfa (Sulfonamide Allergy Severe Anaphylaxis, Verified 12/11/19 17:17 Antibiotics) Hives [SULFA (SULFONAMIDE ANTIBIOTICS)] sulfamethazine Allergy Severe Anaphylaxis Verified 12/11/19 17:17 celecoxib [CELECOXIB] Allergy Mild HIVES Verified 12/11/19 17:17 ciprofloxacin [From CIPRO] Allergy Mild causes c Verified 12/11/19 17:17 diff codeine [CODEINE] Allergy Mild HEART Verified 12/11/19 17:17 RACING cortisone [CORTISONE] Allergy Mild HIVES AND Verified 12/11/19 17:17 NAUSEA erythromycin base Allergy Mild FACE Verified 12/11/19 17:17 [ERYTHROMYCIN BASE] SWELLING, Hives latex [LATEX] Allergy Mild hives Verified 12/11/19 17:17 rofecoxib Allergy Reaction Verified 12/11/19 17:17 not listed silicone Allergy Reaction Verified 12/11/19 17:17 not listed sulfasalazine Allergy Hives Verified 12/11/19 17:17 oxycodone AdvReac Severe Nausea, Verified 12/11/19 17:17 vomiting adhesive tape AdvReac welts Verified 12/11/19 17:17 albuterol [From ProAir HFA] AdvReac Triggers Verified 12/11/19 17:17 Asthma alendronate sodium AdvReac Back, knee Verified 12/11/19 17:17 pain vancomycin AdvReac Rash, Verified 12/11/19 17:17 puritis Review of Systems <FREDERICK Huang - Last Filed: 12/11/19 22:52> Review of Systems Narrative: General: Denies fever, chills, fatigue, malaise, sweats. HEENT: Denies sinus pain, ear pain, sore throat, difficulty swallowing, dizziness. Respiratory: Denies dyspnea, cough, wheezing, hemoptysis, sputum. Cardiovascular: Denies chest pain, palpitations, orthopnea, edema. Gastrointestinal: Denies nausea, vomiting, abdominal pain, diarrhea, constipatio n, melena. : Denies dysuria, frequency, incontinence, hematuria, urinary retention. Musculoskeletal: HPI Skin: See HPI Neurologic: Denies weakness, headache, numbness, change in speech, confusion, seizures, incoordination. Psychiatric: No concerning psychosocial issues. 12-point review of systems is negative except for those stated above. Patient History <FREDERICK Huang - Last Filed: 12/11/19 22:52> Medical History Anesthesia complication (Acute) Anxiety (Acute) Aortic stenosis (Acute) Asthma (Acute) CAD (coronary artery disease) (Acute) Cellulitis (Acute) DJD (degenerative joint disease) (Acute) History of Clostridium difficile infection (Acute 2017) History of IN (myocardial infarction) (Acute 03/2016) HLD (hyperlipidemia) (Acute) HTN (hypertension) (Acute) Memory loss (Acute) Seasonal allergies (Acute) Vertigo (Acute) Surgical History History of cardiac cath (Acute) History of carpal tunnel repair History of knee replacement Hx of lumpectomy (Acute) Hx of pelvic surgery (Acute ~09/2018) 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 Head: normocephalic, atraumatic, no scalp lesions, non-tender. ENT: Hearing grossly intact. Airway patent. Neck/Thyroid: neck supple, full range of motion, no visible masses or meningeal signs. No JVD, non-tender without lymphadenopathy. Skin: no suspicious rashes, lesions over visible areas. Warm and dry and appropriate color for ethnicity. Heart: no clubbing, no cyanosis, no edema. Lungs: Breathing even and unlabored. No stridor. No accessory muscles used. Able to speak in full sentences. Chest: normal shape and expansion. Abdomen: non-obese, non-distended. Neurologic: alert and oriented. Cognitive exam, [employer] and PNS grossly intact on informal exam. Psych: good eye contact, normal affect. Initial Vital Signs Initial Vital Signs: Vital Signs Temperature 98.5 F 12/11/19 17:17 Pulse Rate 73 12/11/19 17:17 Respiratory Rate 16 12/11/19 17:17 Blood Pressure 198/91 H 12/11/19 17:17 Pulse Oximetry 98 12/11/19 17:17 Extrem Left lower extremity: ankle Details: normal to inspection; no tenderness and no swelling and foot Details: normal capillary refill, abnormal to inspection, tenderness Location: of the dorsal foot and of the lateral foot, toes with normal ROM, warmth Location: of the dorsal foot, edema, vascular exam Details: dorsalis pedis pulse present and normal capillary refill, motor-sensory exam Details: light-touch normal and other (Dried yellow exudate along vertical surgical incision; erythema to left lateral dorsal foot) <Joaquin Romero MD - Last Filed: 12/12/19 00:42> Initial Vital Signs Initial Vital Signs: Vital Signs Temperature 98.5 F 12/11/19 17:17 Pulse Rate 73 12/11/19 17:17 Respiratory Rate 16 12/11/19 17:17 Blood Pressure 198/91 H 12/11/19 17:17 Pulse Oximetry 98 12/11/19 17:17 Scores <Brendan FREDERICK Contreras - Last Filed: 12/11/19 22:52> GCS Wendi coma scale eye opening: Spontaneous [place] coma scale verbal response: Orientated [place] coma scale motor response: Obey commands Wendi coma scale total score: 15 qSOFA Altered Mental Status (GCS <15): No Respiratory rate greater than/equal to 22: No Systolic blood pressure less than or equal to 100: No qSOFA Total: 0 0-1 Not High Risk 1-3 High risk Course <Brendan FREDERICK Contreras - Last Filed: 12/11/19 22:52> Orders Ordered: ED Orders 12/11/19 17:41 XR foot LT min 3V Stat 12/11/19 18:15 C-Reactive Protein Quant Stat Complete Blood Count AUTO DIFF Stat Erythrocyte Sedimentation Rate Stat Lactate (Lactic Acid) Stat Discontinued Medications Acetaminophen (Tylenol) 650 mg PO NOW ONE Stop: 12/11/19 17:43 Last Admin: 12/11/19 18:28 Dose: 650 mg Documented by: RYLEY Cephalexin HCl (Keflex) 500 mg PO NOW ONE Stop: 12/11/19 18:57 Last Admin: 12/11/19 19:33 Dose: 500 mg Documented by: RYLEY Vital Signs Vital signs: Vital Signs - 8 hr 12/11/19 17:17 12/11/19 18:31 12/11/19 19:20 Temperature 98.5 F Pulse Rate 73 77 72 Respiratory Rate 16 Blood Pressure 198/91 H 153/74 H 151/70 H Pulse Oximetry 98 86 L 100 <Joaquin Romero MD - Last Filed: 12/12/19 00:42> Orders Ordered: ED Orders 12/11/19 17:41 XR foot LT min 3V Stat 12/11/19 18:15 C-Reactive Protein Quant Stat Complete Blood Count AUTO DIFF Stat Erythrocyte Sedimentation Rate Stat Lactate (Lactic Acid) Stat Discontinued Medications Acetaminophen (Tylenol) 650 mg PO NOW ONE Stop: 12/11/19 17:43 Last Admin: 12/11/19 18:28 Dose: 650 mg Documented by: RYLEY Cephalexin HCl (Keflex) 500 mg PO NOW ONE Stop: 12/11/19 18:57 Last Admin: 12/11/19 19:33 Dose: 500 mg Documented by: RYLEY Vital Signs Vital signs: Vital Signs - 8 hr 12/11/19 17:17 12/11/19 18:31 12/11/19 19:20 Temperature 98.5 F Pulse Rate 73 77 72 Respiratory Rate 16 Blood Pressure 198/91 H 153/74 H 151/70 H Pulse Oximetry 98 86 L 100 MDM - Skin/Abscess/Foreign Bdy <Brendan FREDERICK Contreras - Last Filed: 12/11/19 22:52> Differential Diagnosis Differential diagnosis: Likely abscess of skin or subcutaneous tissue, cellulitis and other (Postsurgical infection, osteomyelitis) Medical Records Attestation: I reviewed the patient's medical records. Lab Data Attestation: I reviewed the patient's lab results. Result diagrams: 12/11/19 18:15 Labs: Lab Results 12/11/19 12/11/19 12/11/19 Range/Units 18:15 18:15 18:15 WBC 8.4 (4.5-11.0) X10^3/uL RBC 4.69 (4.0-5.2) X10^6/uL Hgb 14.6 (12.0-16.0) g/dL Hct 43.4 (36-46) % MCV 92.4 (80-100) fL MCH 31.1 (26-34) PG MCHC 33.7 (30-36) % RDW 13.7 (11.6-14.8) % Plt Count 173 (150-400) X10^3/uL Neut % (Auto) 64.7 (50-75) % Lymph % (Auto) 23.6 L (25-40) % Winkler % (Auto) 9.5 (3-14) % Eos % (Auto) 1.7 L (2-4) % Baso % (Auto) 0.5 (0-2) % Neut # (Auto) 5400 (6111-9788) /uL Lymph # (Auto) 2000 (0891-8915) /uL Winkler # (Auto) 800 (0-900) /uL Eos # (Auto) 100 (0-450) /uL Baso # (Auto) 0 (0-100) /uL ESR 7 (0-20) MM/HR Lactate (0.7-2.1) mmol/L C-Reactive Protein < 0.5 (<1.0) mg/dL 12/11/19 Range/Units 18:15 WBC (4.5-11.0) X10^3/uL RBC (4.0-5.2) X10^6/uL Hgb (12.0-16.0) g/dL Hct (36-46) % MCV (80-100) fL MCH (26-34) PG MCHC (30-36) % RDW (11.6-14.8) % Plt Count (150-400) X10^3/uL Neut % (Auto) (50-75) % Lymph % (Auto) (25-40) % Winkler % (Auto) (3-14) % Eos % (Auto) (2-4) % Baso % (Auto) (0-2) % Neut # (Auto) (4432-9389) /uL Lymph # (Auto) (6281-1402) /uL Winkler # (Auto) (0-900) /uL Eos # (Auto) (0-450) /uL Baso # (Auto) (0-100) /uL ESR (0-20) MM/HR Lactate 0.7 (0.7-2.1) mmol/L C-Reactive Protein (<1.0) mg/dL Imaging Data XR-Foot LT: Radiologist's Impression: [address] [address] XRay Report Signed [facility]: [id number] : 8Acct:[id number] Age/Sex: 69 / FDate of Service: 12/11/19 Loc: ED Accession Number: [id number] Procedure: XR foot LT min 3V Ordering Provider: Brendan Contreras PROCEDURE: XR FOOT LT MIN 3V INDICATIONS: s/p bunionectomy, infection, cellulitis? TECHNIQUE: 3 views of the foot were acquired. COMPARISON: [facility] [place], XR FOOT 3+ VIEWS LEFT, 12/06/2018, 13:25. FINDINGS: Bones: No acute fractures or dislocations. There are interval postsurgical changes along the lateral aspect of the 5th metatarsal head and medial aspect of the 1st metatarsal head compatible with bunionectomies. There is indistinct lucency within the medial aspect of the 1st metatarsal head. No definite cortical erosions. Visualized osseous structures appear osteopenic. Mild periosteal thickening is noted along the medial aspect of the 2nd and 3rd metatarsals which are nonspecific and may represent sequelae of stress reactions. No discrete fracture identified. There is moderate midfoot degeneration most prominent along the 2nd and 3rd tarsometatarsal joints. Mild to moderate degeneration is demonstrated along the tibiotalar joint. There is a mild hallux valgus. Soft tissues: There is mild periarticular soft tissue swelling along the 1st and 5th metatarsophalangeal joints. IMPRESSION: 1. Postsurgical changes of the 1st and 5th metatarsal heads as described. 2. Indistinct lucency within the medial 1st metatarsal head is nonspecific but osteomyelitis cannot be excluded. No discrete bony cortical erosions. 3. Periosteal thickening along the 2nd and 3rd metatarsal shafts may represent stress reactions. The differential includes sequelae of infection. No associated fracture identified. 4. Moderate midfoot degeneration. Dictated by: Edson Miranda M.D. on 12/11/2019 at 18:14 Approved by: Edson Miranda M.D. on 12/11/2019 at 18:18 [facility] Narrative Medical decision making narrative: This is a 69 year female presents to ED with chief complain of left lateral dorsal foot pain, warmth, swelling with purulent discharge. Patient is status post bunionectomy on 11/15/19 on affected foot in metatarsal of great toe and little toe. Patient has been doing well until yesterday. She denies constitutional symptoms. She is afebrile and is stable hemodynamically. No leukocytosis. No elevated lactate, CRP, ESR. Foot x-ray shows postsurgical changes of the 1st and 5th metatarsal head. Indistinct lucency within the 1st metatarsal head but patient's chief complain is limited to 5th metatarsal. Otherwise unremarkable x-ray test results. Physical exam is consistent with cellulitis or infection a incisional site. Patient has multiple antibiotic medication allergies but confirmed she had taken Keflex without problem. Patient was covered with Keflex q.i.d. dose for 7 day course. Return precautions were discussed with patient and advised follow-up with Dr. Pleitez. Skin marking done along the edge of erythema of the affected foot. <Joaquin Romero MD - Last Filed: 12/12/19 00:42> Lab Data Labs: Lab Results 0912/11/19 12/11/19 Range/Units 18:15 18:15 18:15 WBC 8.4 (4.5-11.0) X10^3/uL RBC 4.69 (4.0-5.2) X10^6/uL Hgb 14.6 (12.0-16.0) g/dL Hct 43.4 (36-46) % MCV 92.4 (80-100) fL MCH 31.1 (26-34) PG MCHC 33.7 (30-36) % RDW 13.7 (11.6-14.8) % Plt Count 173 (150-400) X10^3/uL Neut % (Auto) 64.7 (50-75) % Lymph % (Auto) 23.6 L (25-40) % Winkler % (Auto) 9.5 (3-14) % Eos % (Auto) 1.7 L (2-4) % Baso % (Auto) 0.5 (0-2) % Neut # (Auto) 5400 (3104-4871) /uL Lymph # (Auto) 2000 (7200-2832) /uL Winkler # (Auto) 800 (0-900) /uL Eos # (Auto) 100 (0-450) /uL Baso # (Auto) 0 (0-100) /uL ESR 7 (0-20) MM/HR Lactate (0.7-2.1) mmol/L C-Reactive Protein < 0.5 (<1.0) mg/dL 12/11/19 Range/Units 18:15 WBC (4.5-11.0) X10^3/uL RBC (4.0-5.2) X10^6/uL Hgb (12.0-16.0) g/dL Hct (36-46) % MCV (80-100) fL MCH (26-34) PG MCHC (30-36) % RDW (11.6-14.8) % Plt Count (150-400) X10^3/uL Neut % (Auto) (50-75) % Lymph % (Auto) (25-40) % Winkler % (Auto) (3-14) % Eos % (Auto) (2-4) % Baso % (Auto) (0-2) % Neut # (Auto) (1901-3611) /uL Lymph # (Auto) (3641-9109) /uL Winkler # (Auto) (0-900) /uL Eos # (Auto) (0-450) /uL Baso # (Auto) (0-100) /uL ESR (0-20) MM/HR Lactate 0.7 (0.7-2.1) mmol/L C-Reactive Protein (<1.0) mg/dL Discharge Plan Departure Patient Disposition: Home Clinical Impression: Cellulitis Qualifiers: Site of cellulitis: extremity Site of cellulitis of extremity: lower extremity Laterality: left Qualified Code(s): L03.116 - Cellulitis of left lower limb Discharge Date/Time: 12/11/19 19:56 Instructions: DI for Cellulitis -- Adult Activity Restrictions/Additional Instructions: You have been diagnosed with [left foot cellulitis/infection status post bunion surgery. X-ray tests and blood tests are assuring. No elevation in WBC, CRP, ESR, and lactate. X-ray test without acute findings.]. What to do: *Take your medications as directed. Please continue with Keflex 4 times a day for next 7 days. 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 Let them know you were seen in the ED and that we asked you to be seen in follow up. *Return to ED if you have any new, worsening, or concerning symptoms, such as [worsening pain, increasing redness/swelling/warmth, fever, purulent discharge, chest pain, breathing difficulty, unable to tolerate fluids or any acute concerns]. Prescriptions: New cephalexin [Keflex] 500 mg capsule 500 mg PO Q6H 7 Days Qty: 28 RF: 0 No Action vitamin B complex Capsule 1 cap PO DAILY Qty: 0 RF: 0 albuterol sulfate [Ventolin HFA] 90 MCG/PUFF HFA aerosol inhaler 2 puff INH BID Qty: 0 RF: 0 Calcium 600 + D(3) 600 mg calcium- 200 unit Capsule 1 cap PO DIRECTED Qty: 0 RF: 0 acetaminophen 325 mg Capsule 325 mg PO PRN PRN (Reason: Pain) Qty: 0 RF: 0 Fish Oil 1,500 mg PO QDAY Qty: 0 RF: 0 metoprolol tartrate 25 MG tablet 12.5 mg PO QAM Qty: 0 RF: 0 aspirin [Aspir-81] 81 mg Tablet,Delayed Release (Dr/Ec) 81 mg PO DAILY RF: 0 ibuprofen 200 mg Capsule 200 mg PO Q8H PRN (Reason: Pain) RF: 0 docusate sodium 100 mg Tablet 100 mg PO DAILY PRN (Reason: Constipation) RF: 0 ezetimibe 10 mg Tablet 10 mg PO DAILY RF: 0 Saccharomyces boulardii 250 mg Capsule 250 mg PO BID RF: 0 rivastigmine [Exelon] 9.5 mg/24 hr Patch 24 Hour 1 patch TRANSDERMAL DAILY RF: 0 potassium chloride 20 mEq Tablet Extended Release 20 meq PO DAILY RF: 0 Qvar RediHaler 80 mcg/actuation Hfa Aerosol Breath Activated 1 inh INHALATION BEDTIME RF: 0 rosuvastatin 40 mg tablet 40 mg PO BEDTIME RF: 0 Referrals: Schuyler Bello MD [Primary Care Provider] - <Joaquin Romero MD - Last Filed: 12/12/19 00:42> Cosign ED Attending Cosignature Attestation: I was immediately available in the department for consultation. This documentation has been reviewed and I agree with assessment and plan. Supervised by Joaquin Romero MD
[2019-12-11 18:22] LABS: Add Manual Diff / Slide Review NO; Basophils Absolute Auto 0 /uL (0-100); Basophils Percent Auto 0.5 % (0-2); Eosinophils Absolute Auto 100 /uL (0-450); Eosinophils Percent Auto 1.7 % (2-4); Hematocrit 43.4 % (36-46); Hemoglobin 14.6 g/dL (12.0-16.0); Lymphocytes Absolute Auto 2000 /uL (1100-4500); Lymphocytes Percent Auto 23.6 % (25-40); Mean Corpuscular HGB Conc 33.7 % (30-36); Mean Corpuscular Hemoglobin 31.1 PG (26-34); Mean Corpuscular Volume 92.4 fL (80-100); Monocytes Absolute Auto 800 /uL (0-900); Monocytes Percent Auto 9.5 % (3-14); Neutrophils Absolute Auto 5400 /uL (1500-7000); Neutrophils Percent Auto 64.7 % (50-75); Platelet Count 173 X10^3/uL (150-400); Red Blood Cell Count 4.69 X10^6/uL (4.0-5.2); Red Cell Distribution Width 13.7 % (11.6-14.8); White Blood Cell Count 8.4 X10^3/uL (4.5-11.0)
[2019-12-11] MEDS: ACETAMINOPHEN 325 MG TABLET 650 MG PO (18:28)
[2019-12-11 18:31] VITALS: BP 153/74; PULSE 77; O2SAT 86
[2019-12-11 18:34] LABS: Lactate (Lactic Acid) 0.7 mmol/L (0.7-2.1)
[2019-12-11 18:38] LABS: C-Reactive Protein Quant < 0.5 mg/dL (<1.0)
[2019-12-11 18:52] LABS: Erythrocyte Sedimentation Rate 7 MM/HR (0-20)
[2019-12-11 19:20] VITALS: BP 151/70; PULSE 72; O2SAT 100
[2019-12-11] MEDS: cephALEXin 250 MG CAPSULE 500 MG PO (19:33)
== END 2019-12-11 19:56 | disposition home or self-care (01) ==
LOC: ED 17:26 → AC 19:02
PROVIDERS: Emergency Provider Nurse Practitioner Family; Family Provider Family Medicine; PCP Family Medicine; Referring Provider Nurse Practitioner Family
DX: L03.116 Cellulitis of left lower limb (principal)
CPT/HCPCS: 36415; 73630; 83605; 85025; 85651; 86140; 99284

== ENCOUNTER → 2019-12-20 07:12 | Outpatient (CLI) | payer MEDICARE, OTHER, SELFPAY ==
[2017-11-09 19:20] VITALS: BMI 35.1
--- NOTE | 2019-12-20 | DI.MRI.S_ITS ---
PROCEDURE: MRFOOT LT WO CON INDICATIONS: Bunion of left foot TECHNIQUE: Noncontrast sagittal T1 spin echo and T2 fast spin echo with fat saturation, long-axis T1 spin echo and T2 fast spin echo with fat saturation, short-axis T1 spin echo and T2 fast spin echo with fat saturation through the forefoot. COMPARISON: [facility] [place], CR, XR FOOT 3+ VIEWS LEFT, 12/06/2018, 13:25. [facility] [place], CR, XR FOOT 3 VIEWS WEIGHT BEARING LEFT, 01/26/2018, 10:32. [facility], CR, XR FOOT LT MIN 3V, 12/11/2019, 17:50. FINDINGS: Image quality: Degraded by motion artifact Bones and joints: No fracture. Postsurgical changes related to 1st metatarsal bunionectomy. The 1st metatarsal head, there is T2 hyperintensity and loss of the normal marrow fat signal intensity on T1 weighted pulse sequences. There is questionable overlying cortical loss. Adjacent soft tissue swelling is present. Subluxation of the 5th MTP joint with soft tissue swelling, associated marrow edema. There is nearby soft tissue swelling, likely related to resection of bunionette. Diffuse midfoot joint degeneration. Dorsal subcutaneous edema. Soft tissues: The visualized plantar foot muscles demonstrate normal signal and bulk. Visualized flexor and extensor tendons appear intact, without tenosynovitis. The distal insertions of the peroneus brevis and longus tendons appear intact. The principal Lisfranc ligament appears intact. No soft tissue ganglion cysts or bursal fluid collections. Sagittal images demonstrate no evidence for plantar plate tears. IMPRESSION: Postsurgical changes related to 1st metatarsal bunionectomy. Within the 1st metatarsal head, signal abnormalities raise the possibility of osteomyelitis, versus postoperative changes. Similar signal changes at the 5th MTP joint . If there is clinical uncertainty, continued surveillance with short interval serial radiographs could be performed after treatment Subluxation of the 5th MTP joint Dictated by: Isidoro Ruvalcaba M.D. on 12/20/2019 at 10:25 Approved by: Isidoro Ruvalcaba M.D. on 12/20/2019 at 10:36
== END ==
PROVIDERS: Family Provider Family Medicine; PCP Family Medicine; Referring Provider Family Medicine; Visit Provider Podiatrist
DX: M21.612 Bunion of left foot (principal)
CPT/HCPCS: 73718

== ENCOUNTER → 2020-04-14 09:14 | Outpatient (CLI) | payer MEDICARE, OTHER, SELFPAY ==
[2020-03-09 16:25] VITALS: BMI 35.1
[2020-04-14 10:50] LABS: COVID19 -Nasal RAPID Negative (Negative)
== END ==
PROVIDERS: Family Provider Family Medicine; PCP Family Medicine; Visit Provider Surgery
DX: Z01.812 Encounter for preprocedural laboratory examination (principal); Z20.822 Contact with and (suspected) exposure to COVID-19
CPT/HCPCS: 87635; C9803

== ENCOUNTER 2020-04-15 07:28 | Day surgery (SDC) | payer MEDICARE, OTHER, SELFPAY ==
[2020-03-09 16:25] VITALS: BMI 35.1
[2020-04-15] VITALS (14 sets, daily range): BP systolic 85–145; BP diastolic 49–83; PULSE 66–76; RESP 16–20; TEMP 36.2–37.1; O2SAT 84–100; BMI 35.1
--- NOTE | 2020-04-15 | PATH_ITS ---
[facility] Accession Number: [id number] . 01 Material submitted: . PART A: duodenum - DUODENUM PART B: stomach - STOMACH PART C: esophagus - DISTAL ESOPHAGUS PART D: esophagus - MID ESOPHAGUS . 02 Diagnosis: A. Duodenum, Biopsy: Duodenal mucosa with patchy gastric surface foveolar metaplasia, consistent with peptic duodenitis. Negative for intraepithelial lymphocytosis or villous blunting. Negative for dysplasia and malignancy. . B. Stomach, Biopsy: Antral and body-type mucosa with mild chronic gastritis. Negative for Helicobacter organisms by immunohistochemistry. Negative for intestinal metaplasia. Negative for dysplasia or malignancy. . C. Distal Esophagus, Biopsy: Squamous mucosa with minimal active inflammation. A PAS stain is negative for fungal organisms. Intraepithelial eosinophils are not increased. Negative for dysplasia and malignancy. . D. Mid Esophagus, Biopsy: Squamous mucosa with minimal neutrophilic activity. No obvious fungal organisms identified. Intraepithelial eosinophils are not increased. Negative for dysplasia and malignancy. [facility] 04/21/2020 1246 Local . 02 Electronically signed: . Anel Romero MD, Pathologist NPI- [id number] . 01 Gross description: . A. Specimen A is received in formalin, labeled duodenum and consists of a 0.5 x 0.4 x 0.3 cm peng-pink fragment of soft tissue, which is entirely submitted in cassette A1. B. Specimen B is received in formalin, labeled stomach and consists of four peng-pink fragments of soft tissue, measuring 0.8 x 0.7 x 0.2 cm in aggregate. The specimen is entirely submitted in cassette B1. C. Specimen C is received in formalin, labeled distal esophagus and consists of a 0.2 x 0.2 x 0.2 cm peng-pink fragment of soft tissue, which is entirely submitted in cassette C1. D. Specimen D is received in formalin, labeled mid esophagus and consists of three peng-white fragments of soft tissue, measuring 0.4 x 0.3 x 0.2 cm in aggregate. The specimen is entirely submitted in cassette D1. (EA:[id number]) /[facility] 04/16/2020 1644 Local . 02 Microscopic: . B. An immunohistochemical stain was performed to evaluate for Helicobacter organisms and is negative. The control stain showed appropriate reactivity. . C. A PAS stain was performed to evaluate for fungal organisms and is negative. The control stain showed appropriate reactivity. . . * This test was developed and its performance characteristics determined by [facility]. It has not been cleared or approved by the U.S. Food and Drug Administration. The FDA has determined that such clearance or approval is not necessary. This test is used for clinical purposes. It should not be regarded as investigational or for research. . 02 Pathologist provided ICD-10: K92.2 . 02 CPT . 850934, 818804, 803142, 268743, C43611, 125744 Performed at: 01 [facility] [address] [id number] MD Edson Pace MD Phone: [phone] Performed at: 02 Located within [facility] [address] [place] [id number] MD Anel Romero MD Phone: [phone]
[2020-04-15] MEDS: LACTATED RINGERS 1,000 ML 42 ML IV (08:18)
--- NOTE | 2020-04-15 08:25 | SUR.PREOP ---
PT HAS EARLY ONSET DEMENTIA AND IS UNABLE TO ANSWER MOST QUESTIONS, IS HELPFUL, BUT WITH MEDICATIONS HE IS UNSURE OF WHEN SHE HAS TAKEN THEM.
--- NOTE | 2020-04-15 08:34 | PM.PREOP ---
Pre-operative Note COVID-19 COVID-19 status: Negative Result date/Date tested (Pos, Neg/Pending): 04/14/20 Interval Note History & Physical reviewed/Exam performed by Physician: Yes Changes to H&P: No H&P completed within 30 days and has changed as indicated here:: pt reports ongoing melena; black liquid output this morning ASA Class (for procedural sedation): III
--- NOTE | 2020-04-15 08:41 | PM.OP.ENDO ---
Operative Date/Time/Diagnoses Date of procedure: 04/15/20 Time of procedure: 08:41 Pre-op diagnosis: GI bleed Post-op diagnosis: other (moderate endoscopic gastritis and esophagitis) Procedure & Clinicians Study performed: Esophagogastroduodenoscopy Biopsies of duodenum, stomach, distal esophagus and mid esophagus Colonoscopy Same procedure as scheduled: Yes Indications: GI bleed Surgeon: Mala Mcclellan Procedure Notes SCOAP/Timeout: Performed Procedure in detail: The patient was brought to the room. She was identified, and then put under general anesthesia and intubated by the anesthesiologist. She was then placed in left lateral decubitus position with all bony prominences padded. A bite block was positioned in the patient's mouth to protect the lips, teeth, and tongue for the procedure. A time-out was performed and the procedure was begun. The lubricated gastroscope was passed through the bite block and across the tongue and into the esophagus without incident. A tubular view of the esophagus was maintained as the scope was advanced through the esophagus and into the stomach. The scope was advanced through the stomach and to the pylorus. The scope was gently popped through the pylorus and into the duodenal bulb. The scope was flexed and advanced into the second and third portions of the duodenum. The duodenum and duodenal bulb appeared moderately inflamed. Biopsies were taken. The scope was withdrawn into the stomach. The stomach appeared moderately inflamed, consistent with moderate endoscopic gastritis. Biopsies were taken. The scope was retroflexed and the gastric cardia was examined. The hiatus appeared fairly normal without significant gaping around the scope. The scope was then straightened, and withdrawn into the esophagus. The Z-line was irregular, and markedly friable and inflamed, consistent with reflux esophagitis and Hatch's esophagus. Biopsies were taken. Mid esophagus appeared ratty, and mildly inflamed. Biopsies were taken. The scope was then withdrawn through the esophagus with a tubular view. The scope was then withdrawn from the patient. Attention was turned to the colonoscopy portion of the procedure. A rectal exam was performed revealing 8no abnormalities. The colonoscope was then introduced to the rectum and advanced to the cecum in the usual fashion. The cecum was identified by the appendiceal orifice, the mucosal tri-fold, and the ileocecal valve. The prep was poor, but with adequate power wash I was able to at least rule out lesions larger than 5 mm. No large polyps were found. Moderate diverticulosis was seen in the sigmoid and descending colon, and scattered diverticular were seen throughout the ascending colon. No signs of diverticulitis were seen. The scope was then retracted while rotating side to side and examining each mucosal fold. At the conclusion of the procedure small grade 1-2 internal hemorrhoids without stigmata of bleeding were seen. The scope was then withdrawn from the rectum the procedure was concluded. The patient tolerated the procedure well and was transferred to the PACU in stable condition. Scope withdrawal time: 8 Findings: Hatch's esophagus, diverticulosis and gastritis Specimen(s): other (Biopsies of duodenum, stomach, distal esophagus, mid esophagus) Complications: none Impression: Source of melena is probably bleeding from the inflamed distal esophagus and stomach. Post-procedure Recommendations: Colonscopy in 5 years ( Because of poor prep, and inability to rule out lesions smaller than 5 mm) and Will call with biopsy results Plan for aftercare: I have recommended that the patient start on omeprazole 40 mg b.i.d.. I will contact the patient's with her biopsy results, and we will make a decision on the next steps based on biopsy results. Follow up: as needed Disposition: PACU
--- NOTE | 2020-04-15 10:02 | SUR.PHASEI ---
Addendum entered by Ale Cheema R.N. 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 She have PERRLA, and is able to make her needs known with clear voice and pronunciation. push/pull equal with bilat. hands and feet, too. Original Note: pt. refusing to have any po fluids at this time, is able to communicate no px, an appears comfortable. she is having a tremor in her right arm, and states she is a little cold, warm blankets applied, otherwise pt. is well-appearing, ongoing monitoring.
--- NOTE | 2020-04-15 10:23 | SUR.PREOP ---
pt. placed under Kaz Hugger about 15 min ago, colton well. at this time she reports feeling less cold. ongoing monitoring.
--- NOTE | 2020-04-15 10:30 | SUR.PHASEI ---
pt. is sleeping at this time, no tremor/shivering noted, she appears comfortable, ongoing monitoring.
--- NOTE | 2020-04-15 11:31 | SUR.PHASEII ---
1120 Home with in stable condition. GCS 15 at this time. Denies any complaints. VSS.
== END 2020-04-15 11:20 | disposition home or self-care (01) ==
PROVIDERS: Family Provider Family Medicine; PCP Family Medicine; Referring Provider Family Medicine; Visit Provider Surgery
PROC: 0DJ08ZZ Inspection of Upper Intestinal Tract, Via Natural or Artificial Opening Endoscopic (ICD-10-PCS; CPT 43235; principal; 2020-04-15 08:45)
PROC: 0DJD8ZZ Inspection of Lower Intestinal Tract, Via Natural or Artificial Opening Endoscopic (ICD-10-PCS; CPT 45378; 2020-04-15 08:45)
DX: K29.50 Unspecified chronic gastritis without bleeding (principal); I25.2 Old myocardial infarction; I25.10 Atherosclerotic heart disease of native coronary artery without angina pectoris; I10 Essential (primary) hypertension; F03.90 Unspecified dementia, unspecified severity, without behavioral disturbance, psychotic disturbance, mood disturbance, and anxiety; E66.9 Obesity, unspecified; Z68.37 Body mass index [BMI] 37.0-37.9, adult; K64.0 First degree hemorrhoids; K57.30 Diverticulosis of large intestine without perforation or abscess without bleeding; K29.80 Duodenitis without bleeding; K22.70 Barrett's esophagus without dysplasia; K20.90 Esophagitis, unspecified without bleeding
CPT/HCPCS: 43239; 45378; J0330; J1100; J2405; J2704; J3010

== ENCOUNTER → 2020-05-28 17:02 | Outpatient (CLI) | payer MEDICARE, OTHER, SELFPAY ==
[2020-03-09 16:25] VITALS: BMI 35.1
[2020-05-28 18:28] LABS: BUN Creatinine Ratio 28.6 (6-22); Blood Urea Nitrogen 20 mg/dL (7-17); Calcium 9.8 mg/dL (8.4-10.2); Carbon Dioxide 28 mmol/L (22-32); Chloride 106 mmol/L (98-107); Estimated Glomerular Filt Rate > 60.0 mL/min (>60); Glucose 106 mg/dL (80-110); HEMOLYSIS < 15 (0-50); Sodium 138 mmol/L (137-145)
== END ==
PROVIDERS: Podiatrist; Family Provider Family Medicine; PCP Family Medicine; Referring Provider Family Medicine; Visit Provider Family Medicine
DX: K21.9 Gastro-esophageal reflux disease without esophagitis (principal); I25.119 Atherosclerotic heart disease of native coronary artery with unspecified angina pectoris
CPT/HCPCS: 36415; 80048

== ENCOUNTER → 2020-06-03 11:38 | Outpatient (CLI) | payer MEDICARE, OTHER, SELFPAY ==
[2020-03-09 16:25] VITALS: BMI 35.1
[2020-06-03 12:53] LABS: COVID19 -Nasal RAPID Negative (Negative)
== END ==
PROVIDERS: Family Provider Family Medicine; PCP Family Medicine; Visit Provider Physician Assistant
DX: Z01.812 Encounter for preprocedural laboratory examination (principal); Z20.822 Contact with and (suspected) exposure to COVID-19
CPT/HCPCS: 87635; C9803

== ENCOUNTER 2020-06-05 10:42 | Day surgery (SDC) | payer MEDICARE, OTHER, SELFPAY ==
[2020-03-09 16:25] VITALS: BMI 35.1
[2020-06-05] VITALS (8 sets, daily range): BP systolic 86–122; BP diastolic 40–66; PULSE 55–67; RESP 10–18; TEMP 35.9–36.5; O2SAT 95–98; BMI 35.6
[2020-06-05] MEDS: LACTATED RINGERS 1,000 ML 100 ML IV (11:49)
--- NOTE | 2020-06-05 12:36 | SUR.OPER ---
Addendum entered by Deion Severino R.N. 06/05/20 13:13: gel bump under left hip Original Note: Supine on padded OR bed, head on pillow, arms secured on padded arm boards at <90 degrees abduction, legs uncrossed, safety belt at thigh, tape over blanket over nonoperative leg.
[2020-06-05] MEDS: CLINDAMYCIN 600 MG/50 ML PIGGYBACK 50 MG IV (12:43)
--- NOTE | 2020-06-05 12:43 | PM.PREOP ---
Pre-operative Note COVID-19 COVID-19 status: Negative Result date/Date tested (Pos, Neg/Pending): 06/03/20 Interval Note History & Physical reviewed/Exam performed by Physician: Yes Changes to H&P: No
--- NOTE | 2020-06-05 12:44 | P.OP_ITS ---
Operative Date/Time/Diagnoses Date of procedure: 06/05/20 Time of procedure: 12:44 Pre-op diagnosis: Left fifth metatarsal recurrent bunionette with painful skin lesion Post-op diagnosis: same Procedure & Clinicians Procedure: Left fifth metatarsal head resection Same procedure as scheduled: Yes Indications: Painful recurrent fifth metatarsal bunionette with skin lesion. Conservative measures failed to alleviate her pain and she and her wished to have surgical intervention at this time. No contraindications to the procedure at this time. Consent reviewed. Surgeon: Leena Pleitez Click Yes if Unassisted: Yes Anesthesia Type: MAC +/- and Sedation Operative Notes Closure Type: primary Specimen(s): none sent Estimated Blood Loss (mL): 10 Blood products transfused: none Tourniquet time (min): 22 Procedure in detail: The patient was brought to the operating room and placed on the operating table in the supine position. A tourniquet was placed about the left ankle. Well padded, appropriately aligned. After induction of anesthesia the foot was prepared and local anesthesia was performed to the fifth metatarsal area. The foot and ankle were prepped and draped in the usual aseptic manner. The tourniquet was inflated. Next, two converging semi-elliptical incisions was made over the 5th metatarsal head and extended as a single incision proximal to the midshaft. The incision was deepened through subcutaneous tissues being careful to identify and retract all vital neural and vascular structures. All bleeders were cauterized and ligated as necessary. The ellipse of skin was removed that included the firm scarred and callused tissue over the former geoffrey marc's bunion surgical site. The 5th MTPJ capsule was incised and this exposed the underlying prominent 5th metatarsal head laterally. A saw was used to excise the head in an angled manner and gentle rasping allowed for smoothing of the edge of the cut portion of the bone, reducing the prominent remaining angle. The area was irrigated with copious amounts of normal sterile saline. The tourniquet was deflated. A prompt hyperemic response was seen to the foot. Subcutaneous closure was performed using 4-0 Vicryl. Nylon was used to close the skin incision. A sterile lightly compressive dressing was placed on the foot. Patient was then placed in a postoperative shoe and transferred to PACU with vital signs stable and vascular status intact to the foot. Complications: none Post-operative Condition: stable Disposition: PACU Plan for aftercare: Following a period of postoperative monitoring, the patient be discharged to home on written and oral postoperative instructions including keeping the dressing dry and intact, avoiding significant ambulation on the foot but using her walker periodically is ok, and elevating the foot when seated home. DVT prevention techniques have been reviewed. For the 1st postoperative visit the dressing will be changed and close to the 3rd postoperative week we will likely remove the sutures.
[2020-06-05] MEDS: BUPIVACAINE 0.5% (PF) VIAL 30 ML INJ (13:35)
[2020-06-05] MEDS: LIDOCAINE 2% INJ MDV 20 ML INJ (13:35)
== END 2020-06-05 14:40 | disposition home or self-care (01) ==
LOC: OR 10:43
PROVIDERS: Family Provider Family Medicine; PCP Family Medicine; Referring Provider Podiatrist; Visit Provider Podiatrist
PROC: (CPT 28113; principal; 2020-06-05 12:45)
DX: M21.622 Bunionette of left foot (principal); I10 Essential (primary) hypertension; I25.10 Atherosclerotic heart disease of native coronary artery without angina pectoris; J45.909 Unspecified asthma, uncomplicated; Z95.1 Presence of aortocoronary bypass graft; L98.8 Other specified disorders of the skin and subcutaneous tissue; K21.9 Gastro-esophageal reflux disease without esophagitis; F41.9 Anxiety disorder, unspecified
CPT/HCPCS: 28113; J2250; J2704

== ENCOUNTER → 2020-06-15 16:06 | Outpatient (CLI) | payer MEDICARE, OTHER, SELFPAY ==
[2020-03-09 16:25] VITALS: BMI 35.1
--- NOTE | 2020-06-15 16:07 | DI.RAD.S_ITS ---
PROCEDURE: XR SHOULDER RT MIN 2V INDICATIONS: right shoulder pain TECHNIQUE: 3 views of the shoulder were acquired. COMPARISON: None. FINDINGS: Bones: No fracture. Mild AC and glenohumeral joint degeneration. Scattered degenerative subchondral sclerosis and spurring. Soft tissues: No suspicious soft tissue calcifications. IMPRESSION: Mild right shoulder joint degeneration. If the patient's pain or other symptoms persist, consider further evaluation with MRI Dictated by: Isidoro Ruvalcaba M.D. on 06/15/2020 at 16:43 Approved by: Isidoro Ruvalcaba M.D. on 06/15/2020 at 16:47
== END ==
PROVIDERS: Family Provider Family Medicine; PCP Family Medicine; Referring Provider Family Medicine; Visit Provider Family Medicine
DX: M75.41 Impingement syndrome of right shoulder (principal); M19.011 Primary osteoarthritis, right shoulder
CPT/HCPCS: 73030

== ENCOUNTER → 2020-07-29 15:36 | Outpatient (CLI) | payer MEDICARE, OTHER, SELFPAY ==
[2020-03-09 16:25] VITALS: BMI 35.1
--- NOTE | 2020-07-29 15:37 | DI.MRI.S_ITS ---
PROCEDURE: MR HEAD/BRAIN WO CON INDICATIONS: Vertigo, persistent TECHNIQUE: Non-contrast axial T1 spin echo, axial T2 fast spin echo, sagittal and axial FLAIR, coronal T2 fast spin echo, axial gradient echo, axial diffusion and ADC through the brain. COMPARISON: None. FINDINGS: Image quality: Excellent. CSF spaces: Ventricles appear symmetric in size and shape. Basal cisterns are patent. No extra-axial fluid collections. Brain: No intracranial bleeds or mass effects. There is cerebral volume loss for age. There are periventricular and deep white matter chronic small vessel ischemic changes. Brainstem appears normal. Diffusion-weighted images show no acute ischemic insults. No chronic ischemic insults. Normal intravascular flow voids are present. Skull and face: Calvarial bone marrow is normal in signal. Orbits are normal. Sinuses: Sinuses and mastoids are clear. IMPRESSION: 1. No acute intracranial process. 2. Moderate to severe atrophy and chronic microvascular ischemic changes. Dictated by: Denice Villafana M.D. on 07/29/2020 at 16:39 Approved by: Denice Villafana M.D. on 07/29/2020 at 16:40
== END ==
PROVIDERS: Family Provider Family Medicine; PCP Family Medicine; Referring Provider Family Medicine; Visit Provider Family Medicine
DX: R42 Dizziness and giddiness (principal)
CPT/HCPCS: 70551

== ENCOUNTER → 2020-10-27 16:12 | Outpatient (CLI) | payer MEDICARE, OTHER, SELFPAY ==
[2020-03-09 16:25] VITALS: BMI 35.1
--- NOTE | 2020-10-27 16:14 | DI.RAD.S_ITS ---
PROCEDURE: XR HAND LT MIN 3V INDICATIONS: left hand pain and third digit pain TECHNIQUE: 3 views of the hand(s) acquired. COMPARISON: None. FINDINGS: Bones: No fractures or dislocations. Carpal bones are normally aligned. No suspicious bony lesions. Polyarticular degenerative changes of the left hand most severe in the 1st carpometacarpal joint and throughout the interphalangeal joints of the 2nd through 5th fingers. The 5th distal interphalangeal joint appears to be most severely involved. Very small juxta-articular lucency noted at the 3rd proximal interphalangeal joint as well as the 4th proximal interphalangeal joint. Soft tissues: No suspicious soft tissue calcifications. IMPRESSION: Left hand without acute fracture or dislocation. 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 Tiny juxta-articular lucencies predominantly at the proximal interphalangeal joint of the 3rd and 4th fingers may represent small osseous erosions. An inflammatory arthropathy cannot be completely excluded. Dictated by: Sigifredo Church M.D. on 10/27/2020 at 18:04 Approved by: Sigifredo Church M.D. on 10/27/2020 at 18:09
[2020-10-27 17:36] LABS: Hemoglobin A1C% w Est Avg Glu 5.7 % (4.0-6.0)
[2020-10-27 18:07] LABS: Alanine Aminotransferase 30 IU/L (<35); Albumin 4.1 g/dL (3.5-5.0); Albumin Globulin Ratio 1.6 (1.0-2.8); Alkaline Phosphatase 91 U/L (38-126); Aspartate Aminotransferase 41 IU/L (14-36); BUN Creatinine Ratio 23.7 (6-22); Bilirubin Total 0.4 mg/dL (0.2-1.3); Blood Urea Nitrogen 18 mg/dL (7-17); Calcium 9.7 mg/dL (8.4-10.2); Carbon Dioxide 27 mmol/L (22-32); Chloride 105 mmol/L (98-107); Cholesterol 136 mg/dL (140-199); Estimated Glomerular Filt Rate > 60.0 mL/min (>60); Globulin 2.6 g/dL (1.7-4.1); Glucose 102 mg/dL (80-110); HDL Cholesterol 55 mg/dL (40-60); HEMOLYSIS < 15 (0-50); LDL Cholesterol Calculated 59 mg/dL (<100); Potassium 4.8 mmol/L (3.4-5.1); Sodium 140 mmol/L (137-145); Total Protein 6.7 g/dL (6.3-8.2); Triglycerides 108 mg/dL (35-150)
[2020-10-27 18:07] LABS: Creatinine Urine Random 67.8 mg/dL
[2020-10-27 18:11] LABS: Microalbumi Creatinin Ratio Ur 20.6 ug/mg CR (<30); Microalbumin Urine Random 1.4 mg/dL (0-1.6)
== END ==
PROVIDERS: Family Provider Family Medicine; PCP Family Medicine; Referring Provider Family Medicine; Visit Provider Family Medicine
DX: E78.5 Hyperlipidemia, unspecified; M79.642 Pain in left hand; I10 Essential (primary) hypertension
CPT/HCPCS: 36415; 73130; 80053; 80061; 82043; 82570; 83036

== ENCOUNTER → 2021-02-12 13:04 | Outpatient (CLI) | payer MEDICARE, OTHER, SELFPAY ==
[2020-03-09 16:25] VITALS: BMI 35.1
--- NOTE | 2021-02-12 13:06 | DI.MRI.S_ITS ---
PROCEDURE: MR SHOULDER RT WO CON INDICATIONS: prolonged shoulder pain TECHNIQUE: Noncontrast oblique coronal T2 fast spin echo with fat saturation, oblique sagittal T1 spin echo and T2 fast spin echo with fat saturation, axial T1 spin echo and T2 fast spin echo with fat saturation through the shoulder. COMPARISON: None. FINDINGS: Rotator cuff: Full-thickness tear of the supraspinatus tendon is seen measuring approximately 3 cm in the AP dimension as seen on sagittal pulse sequences and approximately 1.5 cm as seen on coronal pulse sequences. Infraspinatus severe tendinopathy interstitial tearing and low-grade bursal surface fraying. There is also partial-thickness articular sided tear. Teres minor appears grossly intact. Subscapularis tendinopathy interstitial tearing , and partial-thickness articular sided tear. There is atrophy of the subscapularis, supraspinatus and infraspinatus muscles. Bones and bursae: No bone marrow contusions or fractures. Moderate hypertrophic acromioclavicular joint degeneration. Acromion demonstrates conventional anatomy, without an os acromiale. Moderate to large joint effusion Capsule and soft tissues: Labrum: Ill-defined fraying and degeneration of the superior labrum. There is slightly hypertrophic appearance of the anteroinferior labrum suggestive of possible chronic tear with subsequent scarring and fibrosis. Adjacent cartilage appears grossly intact. Mild degenerative changes in the glenoid rim at this location. Glenohumeral ligaments: Inferior and superior glenohumeral ligaments are intact. Biceps tendon: Medial subluxation although not well visualized. There is severe tendinopathy and suspected high-grade partial versus complete rupture Rotator interval: Obliteration of the subcoracoid fat signal intensity. Coracohumeral ligament: Not well seen IMPRESSION: Full-thickness rotator cuff tear as above. Diffuse rotator cuff muscle atrophy. Moderate to large joint effusion Chronic appearing tear of the anteroinferior labrum although no definite associated cartilage loss . Minimal adjacent glenoid rim segmental changes. Medial subluxation of the long head biceps tendon with high-grade partial versus complete rupture Dictated by: Isidoro Ruvalcaba M.D. on 02/12/2021 at 14:29 Approved by: Isidoro Ruvalcaba M.D. on 02/12/2021 at 14:40
--- NOTE | 2021-02-12 13:06 | DI.RAD.S_ITS ---
PROCEDURE: XR SHOULDER RT MIN 2V INDICATIONS: prolonged shoulder pain TECHNIQUE: 3 views of the shoulder were acquired. COMPARISON: [facility], CR, XR SHOULDER RT MIN 2V, 06/15/2020, 16:06. FINDINGS: Bones: No acute fractures or dislocations. No suspicious bony lesions. Visualized ribs appear intact. Mild acromioclavicular joint osteoarthrosis. Degenerative changes are seen in the included spine. Soft tissues: No suspicious soft tissue calcifications. Sternotomy wires are partially imaged. IMPRESSION: No acute osseous abnormality. Mild acromioclavicular joint osteoarthrosis. If the symptoms persist, consider cross sectional imaging such as MRI or CT for further assessment. Dictated by: Quang Aguilera M.D. on 02/12/2021 at 13:28 Approved by: Quang Aguilera M.D. on 02/12/2021 at 13:31
== END ==
PROVIDERS: Family Provider Family Medicine; PCP Family Medicine; Referring Provider Family Medicine; Visit Provider Family Medicine
DX: M75.121 Complete rotator cuff tear or rupture of right shoulder, not specified as traumatic (principal); M25.511 Pain in right shoulder; S43.491A Other sprain of right shoulder joint, initial encounter; M62.511 Muscle wasting and atrophy, not elsewhere classified, right shoulder; M25.411 Effusion, right shoulder
CPT/HCPCS: 73030; 73221

== ENCOUNTER → 2021-07-20 14:20 | Outpatient (CLI) | payer MEDICARE, OTHER, SELFPAY ==
[2020-03-09 16:25] VITALS: BMI 35.1
--- NOTE | 2021-07-20 | DI.ECHO.S_ITS ---
[facility]---------+ [facility] +---------+ : : [address] : : : : [id number] : : : : Phone: [phone]+ Echocardiogram Report + + :Name: SAVANNAH BARBER I Study Date: 07/20/2021 Height: 60 in : :[facility] ReadingLocation: Weight: 203 lb : : Gender: Female BSA: 1.9 m2 : :: 1950 Age: 71 yrs BP: 168/93 mmHg: :Reason For Study: NSTEMI : :Ordering Physician: ANGUS, : :DEBBI Performed By: Jadyn Michel : :Referring: DEBBI GRECO : + + Interpretation Summary Left ventricular systolic function appears normal with an estimated ejection fraction of 60 to 65% without any focal wall motion abnormality. Left ventricular size and wall thickness appear normal. Diastolic function is challenging to assess but there is no compelling evidence for any significantly elevated filling pressures. The right ventricle appears normal in size and systolic function. Right ventricular systolic pressure cannot be estimated but CVP is likely around 3 mmHg. There is moderate left atrial enlargement but normal right atrial size. There is significant mitral valve calcification but only trivial mitral regurgitation without any significant mitral valve stenosis. There is moderate aortic valve sclerosis with mild stenosis with a peak velocity of 2.3 m/s, a mean gradient of 14 mmHg, and a severity ratio of 0.53. The ascending aorta is at the upper limits of normal in size. Procedure: A two-dimensional transthoracic echocardiogram with color flow and Doppler was performed. The study quality was technically adequate. There is no prior echocardiogram noted for this patient. The patient was in sinus rhythm with heart rates between 62-70 bpm during the exam. Left Ventricle: The left ventricle appears normal in size, wall thickness, and systolic function without any focal wall motion abnormalities. The ejection fraction is estimated to be 60-65%. Diastolic function could not be accurately assessed due to contradictory data. Right Ventricle: The right ventricle is normal in size and function. Atria: The left atrium is moderately dilated. Right atrial size is normal. There is no Doppler evidence for an interatrial shunt. Mitral Valve: There is moderate mitral annular calcification. There is mild calcification extending into the subvalvular apparatus. There is no mitral valve stenosis. There is trace mitral regurgitation. Aortic Valve: The aortic valve is moderately calcified. There is mild to moderately reduced leaflet mobility. There is mild aortic stenosis. The peak aortic velocity is 2.3 m/sec. The aortic valve mean gradient is 14 mmHg. The calculated aortic valve area is 1.7 cm2. No aortic regurgitation is present. Tricuspid Valve: There is trace tricuspid regurgitation. Pulmonary artery pressures cannot be estimated because of the lack of a measurable TR jet velocity but the IVC suggests a CVP of around 3 mmHg. Pulmonic Valve: The pulmonic valve is not well seen, but is grossly normal. There is no pulmonic valvular regurgitation. Great Vessels: The aortic root is normal size. The ascending aorta is at the upper limits of normal in size. The IVC is of normal diameter and collapses greater than 50% with a sniff. This suggests a low right atrial pressure of 3 mm Hg. Pericardium/ Pleura There is no pericardial effusion. There is no pleural effusion. MMode/2D Measurements & Calculations LVIDd: 4.0 cm LVOT diam: 2.0 cm LVIDs: 2.8 cm Ao root diam: 3.4 cm FS: 28.6 % asc Aorta Diam: 3.4 cm IVSd: 0.95 cm Ao Arch Diam (Prox Trans): 2.7 cm LVPWd: 1.0 cm LV abernathy. diameter/BSA (cm/m^2): 2.1 LV sys. diameter/BSA (cm/m^2): 1.5 LA A2 area: 27.5 cm2 RA long axis: 4.3 cm LA A4 area: 21.9 cm2 RA area: 11.3 cm2 LA length (vol): 5.7 cm RA vol: 25.3 ml LA vol: 90.0 ml RA : 13.5 ml/m2 LA vol index: 47.9 ml/m2 IVC diam: 1.8 cm RVD1 (basal): 3.7 cm RVD2 (mid): 3.4 cm TAPSE: 1.7 cm Doppler Measurements & Calculations Ao V2 max: 233.2 cm/sec LVOT Max Eagle: 125.9 cm/sec Ao V2 mean: 169.9 cm/sec LV V1 max P.4 mmHg Ao max P.7 mmHg LV V1 VTI: 28.2 cm Ao mean P.6 mmHg SHRUTHI(I,D): 1.7 cm2 Ao V2 VTI: 53.0 cm SHRUTHI(V,D): 1.7 cm2 sev ratio: 0.53 SHRUTHI indexed to BSA (cm^2/m^2): 0.91 MV E max eagle: 110.1 cm/sec TR max eagle: 205.4 cm/sec MV A max eagle: 99.6 cm/sec TR max P.9 mmHg MV E/A: 1.1 PA V2 max: 96.1 cm/sec Med Peak E' Eagle: 6.5 cm/sec PA V2 mean: 68.7 cm/sec E/E' med: 17.1 PA mean P.1 mmHg Lat Peak E' Eagle: 10.1 cm/sec PA pr(Accel): 31.0 mmHg E/E' lat: 10.9 E/e' average: 14.0 MV dec time: 0.34 sec MVA(VTI): 2.2 cm2 MV V2 mean: 78.1 cm/sec SV(LVOT): 90.4 ml MV mean P.9 mmHg MV V2 VTI: 41.6 cm Reading Physician:09:27 AM
== END ==
PROVIDERS: Family Provider Family Medicine; PCP Family Medicine; Referring Provider Specialist; Visit Provider Specialist
DX: I21.4 Non-ST elevation (NSTEMI) myocardial infarction (principal); I35.0 Nonrheumatic aortic (valve) stenosis; I35.8 Other nonrheumatic aortic valve disorders
CPT/HCPCS: 93306